=== PATIENT | female | born 1965 | race Caucasian/White ===

== ENCOUNTER 2020-07-28 06:19 | Observation (INO) ==
--- NOTE | 2020-07-07 16:33 | PAT Medication Instructions ---
Medication Instructions Date of Service July 07, 2020 Home Medications Lactobacillus acidophilus 1 billion cell capsule 1,000 mmu cells PO DAILY acetaminophen 325 mg capsule 325 mg PO QID PRN albuterol sulfate 90 mcg/actuation aerosol inhaler 1 inh INHALATION QID PRN amitriptyline 25 mg tablet 50 mg PO DAILY PRN bupropion HCl 100 mg tablet 100 mg PO QID calcium carbonate 500 mg calcium (1,250 mg) chewable tablet 500 mg PO BID citalopram 20 mg tablet 20 mg PO QAM fluticasone propionate 115 mcg-salmeterol 21 mcg/actuation HFA inhaler 2 puff INHALATION BID gabapentin 300 mg capsule 300 mg PO TID lamotrigine 25 mg tablet 50 mg PO BID levothyroxine 75 mcg capsule 75 mcg PO QAM loratadine 10 mg tablet 10 mg PO DAILY moxifloxacin 0.5 % eye drops 1 drp OPHTHALMIC (EYE) TID mv-mn-iron 22.5 mg-folic ac 400 mcg-vit K 500 [id number] chew tablet 1 tab PO QAM omega-3 fatty acids 1,000 mg capsule 1,000 mg PO BID omeprazole 20 mg capsule,delayed release 20 mg PO DAILY ondansetron 8 mg disintegrating tablet 8 mg PO Q12H oxybutynin chloride 5 mg tablet 5 mg PO TID promethazine 25 mg tablet 25 mg PO TID PRN trazodone 50 mg tablet 25 mg PO HS nystatin-emollient combo no.88 1 g TOPICAL DAILY PRN Continue as directed amitriptyline 25 mg tablet 50 mg PO DAILY PRN (if needed) STOP taking 2 weeks before surgery omega-3 fatty acids 1,000 mg capsule 1,000 mg PO BID STOP taking 24 hours before surgery nystatin-emollient combo no.88 1 g TOPICAL DAILY PRN DO NOT take the morning of surgery Lactobacillus acidophilus 1 billion cell capsule 1,000 mmu cells PO DAILY calcium carbonate 500 mg calcium (1,250 mg) chewable tablet 500 mg PO BID loratadine 10 mg tablet 10 mg PO DAILY mv-mn-iron 22.5 mg-folic ac 400 mcg-vit K 500 [id number] chew tablet 1 tab PO QAM oxybutynin chloride 5 mg tablet 5 mg PO TID Take morning of surgery With a small sip of water, OTHERWISE NOTHING TO EAT OR DRINK AFTER MIDNIGHT: acetaminophen 325 mg capsule 325 mg PO QID PRN (okay to take up to 4 hours prior to surgery if needed) albuterol sulfate 90 mcg/actuation aerosol inhaler 1 inh INHALATION QID PRN (use if needed; please bring with you to hospital day of surgery if possible) bupropion HCl 100 mg tablet 100 mg PO QID citalopram 20 mg tablet 20 mg PO QAM fluticasone propionate 115 mcg-salmeterol 21 mcg/actuation HFA inhaler 2 puff INHALATION BID gabapentin 300 mg capsule 300 mg PO TID lamotrigine 25 mg tablet 50 mg PO BID levothyroxine 75 mcg capsule 75 mcg PO QAM moxifloxacin 0.5 % eye drops 1 drp OPHTHALMIC (EYE) TID omeprazole 20 mg capsule,delayed release 20 mg PO DAILY ondansetron 8 mg disintegrating tablet 8 mg PO Q12H promethazine 25 mg tablet 25 mg PO TID PRN (if needed) Take evening before surgery acetaminophen 325 mg capsule 325 mg PO QID PRN (if needed) albuterol sulfate 90 mcg/actuation aerosol inhaler 1 inh INHALATION QID PRN (if needed) bupropion HCl 100 mg tablet 100 mg PO QID fluticasone propionate 115 mcg-salmeterol 21 mcg/actuation HFA inhaler 2 puff INHALATION BID gabapentin 300 mg capsule 300 mg PO TID lamotrigine 25 mg tablet 50 mg PO BID moxifloxacin 0.5 % eye drops 1 drp OPHTHALMIC (EYE) TID ondansetron 8 mg disintegrating tablet 8 mg PO Q12H oxybutynin chloride 5 mg tablet 5 mg PO TID promethazine 25 mg tablet 25 mg PO TID PRN (if needed) trazodone 50 mg tablet 25 mg PO HS Other Notes If you have any questions please call us at [phone] or [phone] or [phone] or [phone]
--- NOTE | 2020-07-11 10:08 | Anesthesiology Consultation ---
Date of Service July 11, 2020 Assessment & Plan (1) Encounter for pre-operative examination: Chart Review Chart Review: Acceptable Risk for Surgery (pending preop Covid testing results ) and Patient seen in Pre Admission Testing - Check test AM DOS Per PAT appt on 07/11/20, pt resides in [facility]. Travels to [facility] for medical appts. Uses PPE. No known Covid positive contacts or Covid related symptoms. No known Covid infection in the past 90 days. Preop Covid testing scheduled 07/24/20= will await results. Educated on importance of self quarantining, social distancing and wearing mask in public both for the patient and household contacts. Teaching & Discussion Pre-Anesthesia Teaching/Discussion Notes: Instructed NPO after midnight before surgery,except medications with 15 cc of water. Medication instructions provided according to the [facility] guidelines. History Surgery Operation Date: 07/28/20 14:25 Proposed Procedures p Left Total Knee Arthroplasty - Brennan Garrison DO Height/Weight Height: 5 ft 2.25 in Weight: 79.2 kg Allergies Allergy/AdvReac Type Severity Reaction Status Date / Time sulfamethoxazole Allergy Intermediate rash Verified 07/07/20 14:27 [From Bactrim] trimethoprim [From Bactrim] Allergy Intermediate rash Verified 07/07/20 14:27 Medications Home Medications Medication Instructions Recorded Confirmed Last Taken Lactobacillus acidophilus 1 1,000 mmu cells PO DAILY 07/04/20 07/07/20 Unknown billion cell capsule acetaminophen 325 mg capsule 325 mg PO QID PRN 07/04/20 07/07/20 Unknown albuterol sulfate 90 mcg/actuation 1 inh INHALATION QID PRN 07/04/20 07/07/20 Unknown aerosol inhaler amitriptyline 25 mg tablet 50 mg PO DAILY PRN 07/04/20 07/07/20 Unknown bupropion HCl 100 mg tablet 100 mg PO QID 07/04/20 07/07/20 Unknown calcium carbonate 500 mg calcium 500 mg PO BID 07/04/20 07/07/20 Unknown (1,250 mg) chewable tablet citalopram 20 mg tablet 20 mg PO QAM 07/04/20 07/07/20 Unknown fluticasone propionate 115 2 puff INHALATION BID 07/04/20 07/07/20 Unknown mcg-salmeterol 21 mcg/actuation HFA inhaler gabapentin 300 mg capsule 300 mg PO TID 07/04/20 07/07/20 Unknown lamotrigine 25 mg tablet 50 mg PO BID 07/04/20 07/07/20 Unknown levothyroxine 75 mcg capsule 75 mcg PO QAM 07/04/20 07/07/20 Unknown loratadine 10 mg tablet 10 mg PO DAILY 07/04/20 07/07/20 Unknown moxifloxacin 0.5 % eye drops 1 drp OPHTHALMIC (EYE) TID 07/04/20 07/07/20 Unknown mv-mn-iron 22.5 mg-folic ac 400 1 tab PO QAM 07/04/20 07/07/20 Unknown mcg-vit K 500 [id number] chew tablet omega-3 fatty acids 1,000 mg 1,000 mg PO BID 07/04/20 07/07/20 Unknown capsule omeprazole 20 mg capsule,delayed 20 mg PO DAILY 07/04/20 07/07/20 Unknown release ondansetron 8 mg disintegrating 8 mg PO Q12H 07/04/20 07/07/20 Unknown tablet oxybutynin chloride 5 mg tablet 5 mg PO TID 07/04/20 07/07/20 Unknown promethazine 25 mg tablet 25 mg PO TID PRN 07/04/20 07/07/20 Unknown trazodone 50 mg tablet 25 mg PO HS 07/04/20 07/07/20 Unknown nystatin-emollient combo no.88 1 g TOPICAL DAILY PRN 07/07/20 07/07/20 Unknown Past Medical History Medical History (Updated 07/11/20 @ 14:45 by Zara Gaitan PA-C) Anxiety Asthma Chronic obstructive pulmonary disease With emphysema Breathing stable and controlled Depression GERD (gastroesophageal reflux disease) Well controlled and stable History of COVID-19 03/29/2020 tested in [facility] , sinus infection symptoms, quarantine 14 days . Symptoms from Covid have resolved- pt feels well History of hypertension Hx of hyperlipidemia Hypothyroidism Osteoarthritis Sleep apnea No longer using CPAP Exercise / Class Metabolic Activity II 4-5 Yardwork/Stairs/Walk up hill (ONE FLIGHT OF STAIRS - NO CHEST PAIN OR SOB ) Past Surgical History Surgical History History of cardiac cath 2018 preop for bariatric surgery History of left cataract surgery History of right cataract surgery History of tonsillectomy and adenoidectomy Hx of appendectomy Hx of bariatric surgery 2018 [facility] Hx of breast reduction, elective 2018 [facility] Hx of section Past Anesthesia History No Hx of Anesthesia Complications and No Family Hx of Anesthesia Complications History of PONV No Hx of PONV and No Hx of Motion Sickness Social History Smoking Status: Current some day smoker tobacco type: cigarettes Smoking cigarettes per day: 1 pack/3 days Do You Dip or Chew Tobacco: No Hx Alcohol Use: No Hx Substance Use: No substance use type: does not use Review of Systems Patient denies chest pain, shortness of breath, dyspnea on exertion, cough, wheezing, palpitations. No hx of seizures, stroke, MO. No hx of blood clots or blood transfusions Physical Exam Vital Signs VITALS BP 112/73 P 68 TEMP 98.2 SP02 96% RESP 16 Constitutional no acute distress ENMT Mouth: no TMJ clicking Thyromental Distance: > or= 3.5 Finger Breadths (3.5) Mallampati Class: I All missing teeth Neck neck extension not limited Respiratory normal respiratory effort; no respiratory distress Auscultation: lungs clear to auscultation bilaterally; no wheezes Cardiovascular Rate/Rhythm: regular rate and regular rhythm Heart Sounds: no murmur Vessels: no carotid bruit Musculoskeletal Spine: + pain with cervical ROM (mild ) Extremities: extremities normal to inspection Psychiatric Orientation: alert Testing Laboratory Results 07/11/20 10:41 07/11/20 10:41 PT 10.3 Seconds (9.0-12.0) 07/11/20 10:41 INR 1.0 (0.9-1.1) 07/11/20 10:41 APTT 28.6 Seconds (21.0-31.0) 07/11/20 10:41 Blood Type O Negative 07/11/20 10:41 Antibody Screen NEGATIVE 07/11/20 10:41 Mild leukopenia noted on 05/2020 labs- will forward preop labs to PCP for review/I Electrocardiogram Date: 07/11/20 Findings: + NSR @ (63bpm) Chest X-Ray Date: 07/11/20 Findings: + NAD Echocardiogram Date: 03/19/17 EF: 61% LV Function: normal Other Findings: + LVH (Mild/concentric) Valvular Disease: + no significant valvular disease Septal motion is abnormal. LV wall motion is normal. Stress Test Date: 09/10/16 Type: nuclear Probable abnormal cardiac stress test suggesting apical ischemia and inferior infarct (poor quality study). Normal pharmacologic stress EKG for ischemia. Wall motion analysis, ejection fraction, 3 times daily ratio not been reported secondary to poor quality study. Cardiac Catheterization Date: 09/30/16 Coronary arteries had diffuse minor irregularities. Normal LV gram with EF 65%. No angiographic explanation for abnormal stress test.
--- NOTE | 2020-07-11 11:05 | XRay Report ---
XR chest Pre-admission PA/Lat CLINICAL HISTORY: Preoperative evaluation. COMPARISON STUDY: No previous studies for comparison. FINDINGS: Lung volumes are normal. Lungs are clear. There is no pneumothorax or pleural effusion. Car diac size is normal. Mediastinal contours are normal. There is no evidence for pulmonary edema. IMPRESSION: No acute cardiopulmonary findings. ACT 112: Negative or not required by law. Electronically signed by: Kwesi Barry M.D. 07/11/2020 11:04 AM
[2020-07-11 11:21] LABS: Basophils # (auto) 0.01 K/uL (0-0.2); Basophils % (auto) 0.3 %; Eosinophils # (auto) 0.06 K/uL (0-0.5); Hematocrit (blood only) 35.6 % (37-47); Hemoglobin 12.3 g/dL (12.0-16.0); Lymphocytes # (auto) 1.09 K/uL (1.2-3.4); Lymphocytes % (auto) 35.9 %; Mean Corpuscular Hemoglobin 31.5 pg (25-34); Mean Corpuscular Hgb Conc 34.6 g/dL (32-36); Mean Corpuscular Volume 91.3 fL (80-100); Mean Platelet Volume 10.6 fL (7.4-10.4); Monocytes # (auto) 0.23 K/uL (0.11-0.59); Monocytes % (auto) 7.6 %; Neutrophils # (auto) 1.65 K/uL (1.4-6.5); Neutrophils % (auto) 54.2 %; Platelet Count 140 K/uL (130-400); RDW Coefficient of Variation 13.3 % (11.5-14.5); White Blood Count 3.04 K/uL (4.8-10.8)
[2020-07-11 11:38] LABS: Partial Thromboplastin Ratio 1.1; Partial Thromboplastin Time 28.6 Seconds (21.0-31.0); Prothrombin Time 10.3 Seconds (9.0-12.0)
[2020-07-11 13:34] LABS: BUN Creatinine Ratio 29.1 (10-20); Calcium 9.3 mg/dl (8.5-10.1); Creatinine Clr Calc Pharmacy 161.6 ml/min; Est GFR (Non-African American) 119.1; Potassium 3.7 mmol/L (3.5-5.1)
--- NOTE | 2020-07-11 14:53 | Electrocardiogram Report ---
Test Reason : Blood Pressure : / mmHG Vent. Rate : 063 BPM Atrial Rate : 063 BPM P-R Int : 192 ms QRS Dur : 090 ms QT Int : 400 ms P-R-T Axes : 081 050 060 degrees QTc Int : 409 ms Normal sinus rhythm No previous ECGs available Confirmed by Giovanny Aguirre ([id number]) on 07/11/2020 2:52:42 PM Referred By: Brennan Garrison Confirmed By:Salomón Aguirre
[~2020-07-28 06:19] MED LIST: ACETAMINOPHEN 500 MG TAB PO SCH; FAMOTIDINE 20 MG TAB PO SCH; GABAPENTIN 900 MG DOSE PO SCH; LR 500ML BOLUS, THEN 15ML/HR IV SCH; LR 60ML/HR IV SCH; ROPIVACAINE 0.5% HCL/PF 150 MG, BUPIVACAINE 0.75% MPF 20 ML, EPINEPHrine 30MG/30ML (OR ... INSTIL SCH; TRANEXAMIC ACID 1,000 MG **IV Intra-op IV SCH; TRANEXAMIC ACID 1,000 MG **IV Pre-op IV SCH; ceFAZolin 1000MG 1,000 MG/7.5 ML SYR IV SCH; dexAMETHasone 4 MG TAB PO SCH
--- NOTE | 2020-07-28 06:22 | History & Physical Report ---
Date of Service July 28, 2020 Assessment & Plan (1) Osteoarthritis of left knee: We will proceed with a left total knee arthroplasty. Postoperatively she will be placed on aspirin for DVT prophylaxis and kept overnight in the hospital for postoperative medical management. She plans to use home health upon discharge. History of Present Illness Chief Complaint: Osteoarthritis left knee. Primary Care Provider: Uriel Stephen MD Gail is a pleasant 54-year-old female whose been dealing with chronic increasing bilateral knee pain. Her left is worse than her right. X-rays and clinical examination have been diagnostic for advanced osteoarthritis of the left knee. After failing conservative treatment, she has elected to proceed with a left total knee arthroplasty. She has recently lost about 250 pounds from gastric bypass surgery in 2018.. Allergies Allergy/AdvReac Type Severity Reaction Status Date / Time sulfamethoxazole Allergy Intermediate rash Verified 07/07/20 14:27 [From Bactrim] trimethoprim [From Bactrim] Allergy Intermediate rash Verified 07/07/20 14:27 Home Medications Medication Instructions Recorded Confirmed Type Lactobacillus acidophilus 1 1,000 mmu cells PO DAILY 07/04/20 07/07/20 History billion cell capsule acetaminophen 325 mg capsule 325 mg PO QID PRN 07/04/20 07/07/20 History albuterol sulfate 90 mcg/actuation 1 inh INHALATION QID PRN 07/04/20 07/07/20 History aerosol inhaler amitriptyline 25 mg tablet 50 mg PO DAILY PRN 07/04/20 07/07/20 History bupropion HCl 100 mg tablet 100 mg PO QID 07/04/20 07/07/20 History calcium carbonate 500 mg calcium 500 mg PO BID 07/04/20 07/07/20 History (1,250 mg) chewable tablet citalopram 20 mg tablet 20 mg PO QAM 07/04/20 07/07/20 History fluticasone propionate 115 2 puff INHALATION BID 07/04/20 07/07/20 History mcg-salmeterol 21 mcg/actuation HFA inhaler gabapentin 300 mg capsule 300 mg PO TID 07/04/20 07/07/20 History lamotrigine 25 mg tablet 50 mg PO BID 07/04/20 07/07/20 History levothyroxine 75 mcg capsule 75 mcg PO QAM 07/04/20 07/07/20 History loratadine 10 mg tablet 10 mg PO DAILY 07/04/20 07/07/20 History moxifloxacin 0.5 % eye drops 1 drp OPHTHALMIC (EYE) TID 07/04/20 07/07/20 History mv-mn-iron 22.5 mg-folic ac 400 1 tab PO QAM 07/04/20 07/07/20 History mcg-vit K 500 [id number] chew tablet omega-3 fatty acids 1,000 mg 1,000 mg PO BID 07/04/20 07/07/20 History capsule omeprazole 20 mg capsule,delayed 20 mg PO DAILY 07/04/20 07/07/20 History release ondansetron 8 mg disintegrating 8 mg PO Q12H 07/04/20 07/07/20 History tablet oxybutynin chloride 5 mg tablet 5 mg PO TID 07/04/20 07/07/20 History promethazine 25 mg tablet 25 mg PO TID PRN 07/04/20 07/07/20 History trazodone 50 mg tablet 25 mg PO HS 07/04/20 07/07/20 History nystatin-emollient combo no.88 1 g TOPICAL DAILY PRN 07/07/20 07/07/20 History Wheeled Walker #1 ea 07/13/20 Rx Past Med/Surg History Medical History Anxiety Asthma Chronic obstructive pulmonary disease With emphysema Breathing stable and controlled Depression GERD (gastroesophageal reflux disease) Well controlled and stable History of COVID-19 03/29/2020 tested in [facility] , sinus infection symptoms, quarantine 14 days . Symptoms from Covid have resolved- pt feels well History of hypertension Hx of hyperlipidemia Hypothyroidism Osteoarthritis Sleep apnea No longer using CPAP Surgical History History of cardiac cath 2018 preop for bariatric surgery History of left cataract surgery History of right cataract surgery History of tonsillectomy and adenoidectomy Hx of appendectomy Hx of bariatric surgery 2018 [facility] Hx of breast reduction, elective 2018 [facility] Hx of section Social History Smoking Status: Current some day smoker Cigarettes Per Day: 1 pack/3 days; Second Hand Exposure: No; Do You Dip or Chew Tobacco: No; Tobacco Cessation Education Requested by Patient: No Hx Alcohol Use: No Hx Substance Use: No Preferred Language: [place] Communication Ability: Effective Flight Teacher Required: No Beliefs That Will Affect Care: None Current Living Situation: Spouse Other Information That Helps Us Care for You: No Feels Safe at Home: Yes Safety Concerns: Feels Safe At This Time Review of Systems All systems reviewed & are unremarkable except as noted in HPI & below. Physical Exam On physical examination of the left knee, she does have a significant varus deformity. She has range of motion from 5 to 120 degrees. She is a little bit of valgus instability. She is tenderness palpation of the distal medial femoral condyle and over the medial joint line.. Constitutional WD/WN, vitals as above Eyes PERRL, conjunctivae normal, anicteric sclerae ENMT external ear and nose normal, oropharynx normal Neck trachea midline, no thyromegaly Respiratory normal respiratory effort Cardiovascular RRR, no murmur, no edema Gastrointestinal (Abdomen) normal bowel sounds, soft, nontender, no hepatosplenomegaly Psychiatric A+Ox3, euthymic affect Results & Data Results & Data Laboratory Results . Diagnostic Findings X-rays of the left knee do show advanced osteoarthritis with joint space narrowing, osteophyte formation, and [id number] articulation. PG Care Time/CCT Total # of Minutes Spent Total Time Spent with Patient: Total time spent is greater than 50% in coordination of care (as documented) at patient's floor/unit and/or counseling patient: Coding Level of Care Code None Diagnoses Osteoarthritis of left knee M17.12
[2020-07-28] MEDS ORDERED: BUPIVACAINE 0.5 % 5 MG/1 ML PF 10ML VIAL ONE (06:30)
[2020-07-28] MEDS ORDERED: fentaNYL citrate 100 MCG/2 ML VIAL IV PRN (07:09)
[2020-07-28] MEDS ORDERED: ATROPINE SULFATE 0.1 MG/ML 10ML SYR IV PRN (07:09)
[2020-07-28] MEDS ORDERED: ePHEDrine sulfate 50 MG/ML AMP IV PRN (07:09)
[2020-07-28] MEDS ORDERED: ONDANSETRON INJ 2 MG/ML 2 ML VIAL IV PRN ×2 (07:09→11:50)
[2020-07-28] MEDS ORDERED: PROPOFOL IV EMULSION 10 MG/ML 20 ML VIAL IV ONE ×4 (07:14→10:20)
[2020-07-28] MEDS ORDERED: MIDAZOLAM HCL 1 MG/ML 2ML VIAL ONE ×2 (07:14→08:59)
[2020-07-28] MEDS ORDERED: LIDOCAINE HCL 2% 2 ML VIAL/AMP(20MG/ML) INFIL ONE ×2 (07:14→09:57)
[2020-07-28] MEDS ORDERED: fentaNYL citrate 100 MCG/2 ML VIAL ONE (07:14)
[2020-07-28] MEDS ORDERED: ORTHO JOINT ANESTHETIC ONE (08:26)
--- NOTE | 2020-07-28 10:08 | Operative Report ---
PG Post Operative Report Pre & Post Diagnosis Operation Date: 07/28/20 08:50 Pre-Op Diagnosis: Left Knee Degenerative Joint Disease Post-Op Diagnosis: Left Knee Degenerative Joint Disease I identified the patient and participated in the time-out.: Yes Procedure Operation Date: 07/28/20 08:50 Actual Procedures p Left Total Knee Arthroplasty, Cemented(Left) - Brennan Garrison DO Surgeon Brennan Garrison DO Call Center Director Brennan Davila PAC Estimated Blood Loss 20 Findings Consistent with Post-Op Diagnosis Specimens Left femoral and tibial bone Complications none Disposition Disposition: Recovery Room Indications Gail is a pleasant 54-year-old female who has been ill with chronic increasing left knee pain. X-rays and clinical examination have been diagnostic for severe osteoarthritis of the left knee. After failing conservative treatment, she has elected proceed with a left total knee arthroplasty. Description of Procedure Implants used: I used a [employer] Persona total knee arthroplasty system with a size 8 CPS femur, D tibia, 32 patella, and a size 12 CPS polyethylene bearing. All components were cemented in place with Simplex HV cement. Gail arrived [facility] for the above procedure. She was seen in the preoperative holding area and the operative extremity was identified and signed. She was given a preoperative antibiotic, TXA, a spinal anesthetic and an adductor nerve block. She was taken back to the operating room and laid on the table in supine position. She was given basic sedation. The operative knee was then prepped and draped in sterile fashion. A timeout was done, and the patient and the operative extremity was properly identified. A midline incision was made directly over the patella. Dissection was taken down to the extensor mechanism. A subvastus arthrotomy was used. The medial retinaculum was released and the fat pad was mostly excised. The knee was flexed and the ACL, PCL, and meniscus were removed. A drill was sent down the center of the femoral canal followed by an intramedullary teresa. Off that teresa a distal femoral cutting block was placed. 9 mm was resected off the distal femur at 5 of valgus. A posterior referencing AP sizing guide was then placed on the distal femur. The femur measured to be a size 8. 2 drill holes were placed in 3 of external rotation. A 4-in-1 cutting block was then impacted into place. Anterior, posterior, and chamfer cuts were then made. The proximal tibia was then exposed. An external tibial alignment guide was placed. A tibial cut guide was then anchored in place and the proximal tibia was then resected. The posterior aspect of the knee was then opened up and any additional meniscus fragments and osteophytes were removed. The tibia measured to be a size D. The tibial plate was then placed in the appropriate rotation and the tibia was drilled and punched. Trial components were then placed. I used a size 12 CPS polyethylene insert. The knee was brought through a full range of motion and felt to be stable. The peg holes for the femoral component were then drilled. The patella was then everted and 9 mm was resected off the posterior aspect of the patella. The patella measured to be a size 32. 3 peg holes were then drilled. A trial patella was placed. The knee was once again brought through a full range of motion and felt to be stable. Trial components were then removed. The surrounding soft tissues were injected with 100 cc of an orthopedic pain control cocktail. All components were then cemented into place with Simplex HV cement. The final polyethylene insert was then snapped into place. Once cement was dry the tourniquet was deflated. Hemostasis was obtained. A dilute betadyne lavage was then done for 3 minutes. The joint was then irrigated with normal saline solution. The subvastus arthrotomy was then closed with #1 Vicryl suture. The skin was closed with 2-0 Vicryl, 3-0V lock suture, and paulina. A Silverlon and a soft compressive dressing were placed. She was then transferred to a hospital bed and taken to the postanesthesia care unit in stable condition. She tolerated the procedure well. Brennan Davila PA-C, was present for the entire procedure. He was critical for patient positioning, prepping, draping, retraction exposure, wound closure and application of sterile dressing. I attest to the content of the Intraoperative Record and any orders documented therein. Any exceptions are noted below.
--- NOTE | 2020-07-28 11:02 | XRay Report ---
XR knee LT 1 or 2V routine CLINICAL HISTORY: Postoperative evaluation COMPARISON: Knee radiographs July 04, 2020. FINDINGS: Alignment of the total left knee arthroplasty is anatomic. There is no periprosthetic frac ture or unexpected radiopaque foreign body. There are skin paulina. IMPRESSION: Expected findings following total left knee arthroplasty ACT 112: Negative or not required by law. Electronically signed by: Kwesi Barry M.D. 07/28/2020 11:01 AM
[2020-07-28] MEDS ORDERED: bisacodyL 10 MG SUPP PR PRN (11:50)
[2020-07-28] MEDS ORDERED: NALOXONE HCL 0.4 MG/1 ML VIAL/CARP IV PRN (11:50)
[2020-07-28] MEDS ORDERED: oxyCODONE HCL IR 5 MG TAB (IMMEDIATE RELEASE) PO PRN (11:50)
[2020-07-28] MEDS ORDERED: HYDROmorphone INJ 0.5 MG/0.5 ML SYR IV PRN (11:50)
[2020-07-28] MEDS ORDERED: AMITRIPTYLINE HCL 50 MG TAB PO PRN (11:50)
[2020-07-28] MEDS ORDERED: METOCLOPRAMIDE HCL INJ 5 MG/ML 2 ML VIAL IV PRN (11:50)
[2020-07-28] MEDS ORDERED: ALBUTEROL HFA 8 GM INHALER INH PRN (11:50)
[2020-07-28] MEDS ORDERED: MAGNESIUM HYDROXIDE SUSP 30 ML UDC PO PRN (11:50)
[2020-07-28] MEDS ORDERED: SODIUM CHLORIDE 0.9% 1000ML 1,000 ML IV SCH (11:50)
--- NOTE | 2020-07-28 12:11 | Anesthesiology Progress Note ---
Date of Service July 28, 2020 Anesthesia Post Procedure Vital Signs Vital Signs: Temp Pulse Pulse Resp BP Pulse Ox 07/28/20 11:30 52 L 14 109/62 94 07/28/20 11:15 54 L 14 112/65 94 07/28/20 11:05 97.7 F 57 L 17 119/72 94 07/28/20 10:55 61 16 119/71 94 07/28/20 10:45 58 L 16 118/72 95 07/28/20 10:35 59 L 16 119/76 97 07/28/20 10:28 97.2 F L 69 16 118/72 100 07/28/20 07:14 98.8 F 65 16 132/74 97 Transfer of Care Handoff Completed per policy Notes Mental Status: alert / awake / arousable and participated in evaluation Patient Amnestic to Procedure: Yes Nausea / Vomiting: adequately controlled Pain: adequately controlled Airway Patency, RR, SpO2: stable & adequate BP & HR: stable & adequate Hydration State: stable & adequate Neuraxial Anesthesia: was administered and sensory block is resolving Anesthetic Complications: no major complications apparent and Pt Satisfied with anesthetic care
[2020-07-28] MEDS: KETOROLAC 30 MG/ML VIAL IV SCH ×3 (12:58→23:10)
[2020-07-28] MEDS: OXYBUTYNIN CHLORIDE 5 MG TAB PO SCH ×2 (13:47→20:38)
[2020-07-28] MEDS: GABAPENTIN 300 MG CAP PO SCH ×2 (13:47→20:39)
[2020-07-28] MEDS: ACETAMINOPHEN 500 MG TAB PO SCH ×2 (13:47→23:09)
[2020-07-28] MEDS: buPROPion HCl 100 MG TABLET PO SCH ×3 (13:48→20:39)
[2020-07-28] MEDS ORDERED: MOXIFLOXACIN OPH SOLN PER DROP CHARGE OP SCH (14:00)
[2020-07-28] MEDS: ceFAZolin 2000MG 2,000 MG/15 ML SYR IV SCH ×2 (15:54→23:10)
[2020-07-28] MEDS: lamoTRIgine 25 MG TAB PO SCH (20:38)
[2020-07-28] MEDS: DOCUSATE SODIUM 100 MG CAP PO SCH (20:39)
[2020-07-28] MEDS: ASPIRIN 81 MG ECTAB PO SCH (20:39)
[2020-07-28] MEDS ORDERED: traZODone HCL 50 MG TAB PO SCH (21:00)
[2020-07-28] MEDS ORDERED: SENNA 8.6 MG TAB PO SCH (21:00)
[2020-07-29] MEDS: ACETAMINOPHEN 500 MG TAB PO SCH ×2 (05:29→13:37)
[2020-07-29] MEDS: KETOROLAC 30 MG/ML VIAL IV SCH ×2 (05:30→11:31)
[2020-07-29] MEDS ORDERED: LEVOTHYROXINE SODIUM 75 MCG TABLET PO SCH (06:30)
[2020-07-29] MEDS: DOCUSATE SODIUM 100 MG CAP PO SCH (07:19)
[2020-07-29] MEDS: ASPIRIN 81 MG ECTAB PO SCH (07:19)
[2020-07-29] MEDS: buPROPion HCl 100 MG TABLET PO SCH ×2 (07:19→12:22)
[2020-07-29] MEDS: OXYBUTYNIN CHLORIDE 5 MG TAB PO SCH ×2 (07:20→13:37)
[2020-07-29] MEDS: GABAPENTIN 300 MG CAP PO SCH ×2 (07:20→13:37)
[2020-07-29] MEDS: lamoTRIgine 25 MG TAB PO SCH (07:20)
--- NOTE | 2020-07-29 07:46 | Orthopedic Progress Note ---
Date of Service July 29, 2020 Assessment & Plan (1) Status post left knee replacement: Overall she is doing very well. She denies any much pain in the left knee. She will be seen by physical therapy today for ambulation and range of motion exercises. She is on aspirin for DVT prophylaxis. The dressing can be changed after physical therapy. She can be discharged home later today. She will follow-up with orthopedics in 2 weeks. Albert Reynolds was seen and examined at bedside this morning. Overall she is doing fairly well. She is not having much pain in the left knee. She has been up and ambulating to the bathroom. She has no complaints.. Review of Systems All systems reviewed & are unremarkable except as noted in HPI & below. Physical Exam On physical examination of the left knee, the dressing is clean and dry. Her leg is out full extension. She has active dorsiflexion plantarflexion of her left ankle.. Results & Data Results & Data Laboratory Results . Diagnostic Findings Postoperative x-rays of the left knee show the prosthesis to be in anatomic alignment without any evidence of fracture, dislocation, or loosening. PG Care Time/CCT Total # of Minutes Spent Total Time Spent with Patient: Total time spent is greater than 50% in coordination of care (as documented) at patient's floor/unit and/or counseling patient: Coding Level of Care Code 73610 Post Operative Follow-Up Diagnoses Status post left knee replacement Z96.652
--- NOTE | 2020-07-29 07:52 | Discharge Summary ---
Date of Service July 29, 2020 Admission HPI (Per Admitting) Gail is a pleasant 54-year-old female whose been dealing with chronic increasing bilateral knee pain. Her left is worse than her right. X-rays and clinical examination have been diagnostic for advanced osteoarthritis of the left knee. After failing conservative treatment, she has elected to proceed with a left total knee arthroplasty. She has recently lost about 250 pounds from gastric bypass surgery in 2018.. Admission Exam (Per Admitting) On physical examination of the left knee, she does have a significant varus deformity. She has range of motion from 5 to 120 degrees. She is a little bit of valgus instability. She is tenderness palpation of the distal medial femoral condyle and over the medial joint line.. Principal Diagnosis Same as "Discharge Diagnosis" noted below under Discharge Instructions. Discharge Exam On physical examination of the left knee, the dressing is clean and dry. Her leg is out full extension. She has active dorsiflexion plantarflexion of her left ankle.. Discharge Data Procedures Performed Operation Date: 07/28/20 08:50 Actual Procedures p Left Total Knee Arthroplasty, Cemented(Left) - Brennan Garrison DO Ordered Studies 07/28/20 05:00 US - OR guided needle placemen Routine Hospital Course (1) Status post left knee replacement: On July 28, 2020 Gail arrived at [facility] and underwent a left knee replaced without complication. She had a spinal anesthetic. Postoperatively she was started on aspirin for DVT prophylaxis and transferred to the general orthopedic floors. Her hospital course was uneventful. On postop day #1 her H&H was stable and her pain was well controlled. She was able to participate well with physical therapy doing ambulation and range of motion exercises. She was then discharged home. She can follow-up with orthopedics in 2 weeks. PG Care Time/CCT Total # of Minutes Spent Total Time Spent with Patient: Total time spent is greater than 50% in coordination of care (as documented) at patient's floor/unit and/or counseling patient: Discharge Plan Discharge Items Patient Disposition: Home - Home Health Services Reason For Visit: Left Knee Degenerative Joint Disease Discharge Diagnosis: Left knee replacement Activity: As commented below Non-emergency contact: Surgeon Call non-emergency contact if: your wound has increased redness and your wound has increased drainage Follow-up/Referrals: Uriel Stephen MD [Primary Care Provider] - Diet: Regular Addtl Attending Provider Instructions: Activity and Therapy Recommendations: * If you are using [facility] then therapy will be provided at your home until they feel you have accomplished all of your goals. * If you are using [facility] then Physical Therapy will be provided until they feel you are ready to start Outpatient Physical Therapy. * If you are not using home therapy then Outpatient Physical Therapy should start about 3-5 days from your day of surgery. Therapy will last about 6-10 weeks * It is important not to put a pillow under your knee when you are relaxing or sleeping. It is just as important to make sure you are getting your knee perfectly straight as it is to regain your knee bend. * You were shown a series of exercises in the hospital. Do these exercises three times each day including the exercises you were shown in physical therapy. * Get up and walk several times each day. For the first four weeks, try not to stand or walk for more than one hour at a time. If you do stand or walk for more than one hour, you will not hurt anything, but your leg will likely swell. * As you feel comfortable, you may change from the walker or crutches to a cane and then to independent walking. Medications: * Narcotic You will likely be sent home from the hospital with a prescription for the narcotic pain medication that worked best throughout your stay. * Aspirin Most patients will be required to take Aspirin 81mg twice a day for 6 weeks after surgery. This is obtained [id number] and a prescription is not necessary. * Other medications may be prescribed for specific circumstances. If you have any questions, please call the office at . * Resume previous home medications unless otherwise instructed TEDs/Elastic Stockings: The white elastic stockings help limit swelling and prevent blood clots from forming in your legs.~ The more you wear them, the more they work. Wear them for six weeks. Dressing Care: You may change the dressing after physical therapy on the first day. Then do daily dry dressing changes. If the incision is not draining then you may leave the paulina open to air. If there is a little bit of drainage or if the paulina are getting stuck on your clothing then cover the incision with a dry dressing. The paulina will be removed at your 2 week follow-up appointment. Showering: You may shower 5 days from the day of surgery. You may shower with the paulina exposed. Let soapy water run over the paulina and pat them dry. Do not scrub or soak the incision. Things To Watch For: * Drainage from the incision site that occurs more than one week after your surgery. * Increased redness at the incision site. * Fever above 102 degrees Fahrenheit. * Unusual chest pain or shortness of breath. * Call [facility] at with any of the above problems Follow-Up Visit: Follow-up with Dr. Garrison's PA (Brennan Davila) 2-3 weeks after your day of surgery. He will remove your paulina and answer any questions. If you have any additional questions or concerns, Dr Garrison is usually in the office at the same time and will be available An appointment was probably scheduled when you signed-up for surgery in the office. If you have any questions call Office Instructions: More detailed instructions as well as Frequently Asked Questions were provided in a folder by our office when you signed-up for surgery. Please review these instructions when you get home. If you have any further questions or concerns, please feel free to call the office at [phone] Pending Studies at Discharge: No Stand-Alone Forms: [facility] Medications and DC Order Prescriptions: New oxycodone 5 mg Tablet 5 mg PO Q4H PRN (Reason: pain) Qty: 30 RF: 0 aspirin 81 mg Tablet,Delayed Release (Dr/Ec) 81 mg PO BID 42 Days Qty: 84 RF: 0 Continued (DME) Wheeled Walker Misc See Rx Instructions .MEDSUPPLY Qty: 1 RF: 0 acetaminophen 325 mg capsule 325 mg PO QID PRN (Reason: Pain) RF: 0 amitriptyline 25 mg tablet 50 mg PO DAILY PRN (Reason: Itching) RF: 0 bupropion HCl 100 mg tablet 100 mg PO QID RF: 0 calcium carbonate [Calcium 500] 500 mg calcium (1,250 mg) tablet,chewable 500 mg PO BID RF: 0 citalopram 20 mg tablet 20 mg PO QAM RF: 0 DEKAs Bariatric 22.5 mg-400 mcg -500 mcg-10 mg tablet,chewable 1 tab PO QAM RF: 0 loratadine [Allergy Relief (loratadine)] 10 mg tablet 10 mg PO DAILY RF: 0 omega-3 fatty acids [Fish Oil Concentrate] 1,000 mg capsule 1,000 mg PO BID RF: 0 fluticasone propion-salmeterol 115-21 mcg/actuation HFA aerosol inhaler 2 puff inhalation BID RF: 0 gabapentin 300 mg capsule 300 mg PO TID RF: 0 Lactobacillus acidophilus 1 billion cell capsule 1,000 mmu cells PO DAILY RF: 0 lamotrigine 25 mg tablet 50 mg PO BID RF: 0 levothyroxine 75 mcg capsule 75 mcg PO QAM RF: 0 moxifloxacin 0.5 % drops 1 drp ophthalmic (eye) TID RF: 0 omeprazole 20 mg capsule,delayed release(DR/EC) 20 mg PO DAILY RF: 0 ondansetron 8 mg tablet,disintegrating 8 mg PO Q12H RF: 0 oxybutynin chloride 5 mg tablet 5 mg PO TID RF: 0 promethazine 25 mg tablet 25 mg PO TID PRN (Reason: n/v) RF: 0 albuterol sulfate [Proventil HFA] 90 mcg/actuation HFA aerosol inhaler 1 inh inhalation QID PRN (Reason: sob) RF: 0 trazodone 50 mg tablet 25 mg PO HS RF: 0 nystatin-emollient combo no.88 100,000 unit/gram Combo Pack,Gel And Powder 1 g TOPICAL DAILY PRN (Reason: prn) RF: 0 Discharge Orders: Discharge Order (Routine); Ordered 07/29/20 Ordered By: Brennan Garrison Admission Data Admit Date/Time: 07/28/20 10:32 Attending Provider: Brennan Garrison Admit Provider: Brennan Garrison Primary Care Provider: Uriel Stephen
[2020-07-29] MEDS ORDERED: dexAMETHasone 4 MG TAB PO SCH (08:00)
[2020-07-29] MEDS ORDERED: MULTIVITAMIN TAB PO SCH (09:00)
[2020-07-29] MEDS ORDERED: CITALOPRAM 20 MG TAB PO SCH (09:00)
== END 2020-07-29 14:02 | disposition home health service (06) ==
LOC: 3E 06:19 → ASU 06:19

== ENCOUNTER 2023-07-18 06:52 | Observation (INO) ==
--- NOTE | 2023-06-20 16:29 | PAT Medication Instructions ---
Medication Instructions Date of Service June 20, 2023 Home Medications Medication Instructions Recorded Vaughn Felix #1 ea 07/13/20 Lactobacillus acidophilus 1 billion cell capsule 1,000 mmu cells PO QAM acetaminophen 325 mg capsule 325 mg PO QID PRN albuterol sulfate 90 mcg/actuation aerosol inhaler (Proventil HFA) 1 inh inhalation QID PRN amitriptyline 25 mg tablet 75 mg PO HS bupropion HCl 100 mg tablet 100 mg PO QID calcium carbonate 500 mg calcium (1,250 mg) chewable tablet (Calcium 500) 500 mg PO BID citalopram 20 mg tablet 20 mg PO QAM fluticasone propionate 115 mcg-salmeterol 21 mcg/actuation HFA inhaler 2 puff inhalation BID lamotrigine 25 mg tablet 50 mg PO BID levothyroxine 75 mcg capsule 75 mcg PO QAM loratadine 10 mg tablet (Allergy Relief (loratadine)) 10 mg PO HS mv-mn-iron 22.5 mg-folic ac 400 mcg-vit K 500 [id number] chew tablet (DEKAs Bariatric) 1 tab PO QAM omega-3 fatty acids 1,000 mg capsule (Fish Oil Concentrate) 1,000 mg PO BID omeprazole 20 mg capsule,delayed release 20 mg PO DAILY PRN ondansetron 8 mg disintegrating tablet 8 mg PO Q12H PRN oxybutynin chloride 5 mg tablet 5 mg PO TID trazodone 50 mg tablet 25 mg PO HS montelukast 10 mg tablet 10 mg PO QAM Continue as directed omeprazole 20 mg capsule,delayed release 20 mg PO DAILY PRN(if needed) STOP taking 2 weeks before surgery (or as soon as possible if surgery is within 2 weeks) omega-3 fatty acids 1,000 mg capsule (Fish Oil Concentrate) 1,000 mg PO BID DO NOT take the morning of surgery Lactobacillus acidophilus 1 billion cell capsule 1,000 mmu cells PO QAM calcium carbonate 500 mg calcium (1,250 mg) chewable tablet (Calcium 500) 500 mg PO BID mv-mn-iron 22.5 mg-folic ac 400 mcg-vit K 500 [id number] chew tablet (DEKAs Bariatric) 1 tab PO QAM oxybutynin chloride 5 mg tablet 5 mg PO TID Take morning of surgery With a small sip of water, OTHERWISE NOTHING TO EAT OR DRINK AFTER MIDNIGHT: acetaminophen 325 mg capsule 325 mg PO QID PRN(if needed) albuterol sulfate 90 mcg/actuation aerosol inhaler (Proventil HFA) 1 inh inhalation QID PRN(use if needed; please bring with you to hospital day of surgery if possible) bupropion HCl 100 mg tablet 100 mg PO QID citalopram 20 mg tablet 20 mg PO QAM fluticasone propionate 115 mcg-salmeterol 21 mcg/actuation HFA inhaler 2 puff inhalation BID lamotrigine 25 mg tablet 50 mg PO BID levothyroxine 75 mcg capsule 75 mcg PO QAM ondansetron 8 mg disintegrating tablet 8 mg PO Q12H PRN(if needed) montelukast 10 mg tablet 10 mg PO QAM Take evening before surgery acetaminophen 325 mg capsule 325 mg PO QID PRN(if needed) albuterol sulfate 90 mcg/actuation aerosol inhaler (Proventil HFA) 1 inh inhalation QID PRN(if needed) amitriptyline 25 mg tablet 75 mg PO HS bupropion HCl 100 mg tablet 100 mg PO QID calcium carbonate 500 mg calcium (1,250 mg) chewable tablet (Calcium 500) 500 mg PO BID fluticasone propionate 115 mcg-salmeterol 21 mcg/actuation HFA inhaler 2 puff inhalation BID lamotrigine 25 mg tablet 50 mg PO BID loratadine 10 mg tablet (Allergy Relief (loratadine)) 10 mg PO HS ondansetron 8 mg disintegrating tablet 8 mg PO Q12H PRN(if needed) oxybutynin chloride 5 mg tablet 5 mg PO TID trazodone 50 mg tablet 25 mg PO HS Other Notes If you have any questions please call us at [phone] or [phone] or [phone] or [phone]
--- NOTE | 2023-06-25 13:49 | Anesthesiology Consultation ---
Date of Service June 25, 2023 Assessment & Plan (1) Encounter for pre-operative examination: Plan - Outpatient joint assessment: Patient is currently scheduled for inpatient pathway. If re-evaluated and patient/surgeon requests outpatient pathway, patient is not recommended candidate for outpatient joint program from anesthesia standpoint. Chart Review Chart Review: Acceptable Risk for Surgery and Patient seen in Pre Admission Testing Teaching & Discussion Pre-Anesthesia Teaching/Discussion Notes: Instructed NPO after midnight before surgery, except medications with 15 cc of water. Medication instructions provided according to the PAT guidelines. History Surgery Operation Date: 07/18/23 09:00 Proposed Procedures p Right Total Knee Arthroplasty - Brennan Garrison, Height/Weight Height: 5 ft 2.25 in Weight: 89.4 kg Allergies Allergy/AdvReac Type Severity Reaction Status Date / Time sulfamethoxazole Allergy Intermediate rash Verified 06/13/23 09:03 [From Bactrim] trimethoprim [From Bactrim] Allergy Intermediate rash Verified 06/13/23 09:03 nickel Allergy Mild swelling/redness Verified 06/13/23 09:03 with nickel earrings Medications Home Medications Medication Instructions Recorded Confirmed Last Taken Lactobacillus acidophilus 1 1,000 mmu cells PO QAM 07/04/20 06/13/23 Unknown billion cell capsule acetaminophen 325 mg capsule 325 mg PO QID PRN Pain 07/04/20 06/13/23 07/24/20 10:00 albuterol sulfate 90 mcg/actuation 1 inh inhalation QID PRN sob 07/04/20 06/13/23 07/27/20 07:00 aerosol inhaler (Proventil HFA) amitriptyline 25 mg tablet 75 mg PO HS 07/04/20 06/13/23 07/26/20 22:00 bupropion HCl 100 mg tablet 100 mg PO QID 07/04/20 06/13/23 07/27/20 07:00 calcium carbonate (Calcium 500) 500 mg PO BID 07/04/20 06/13/23 Unknown citalopram 20 mg tablet 20 mg PO QAM 07/04/20 06/13/23 07/27/20 07:00 fluticasone propionate 115 2 puff inhalation BID 07/04/20 06/13/23 07/27/20 07:00 mcg-salmeterol 21 mcg/actuation HFA inhaler lamotrigine 25 mg tablet 50 mg PO BID 07/04/20 06/13/23 07/27/20 07:00 levothyroxine 75 mcg capsule 75 mcg PO QAM 07/04/20 06/13/23 07/27/20 23:59 loratadine 10 mg tablet (Allergy 10 mg PO HS 07/04/20 06/13/23 07/27/20 07:00 Relief (loratadine)) mv-mn-iron 22.5 mg-folic ac 400 1 tab PO QAM 07/04/20 06/13/23 Unknown mcg-vit K 500 [id number] chew tablet (DEKAs Bariatric) omega-3 fatty acids 1,000 mg 1,000 mg PO BID 07/04/20 06/13/23 Unknown capsule (Fish Oil Concentrate) omeprazole 20 mg capsule,delayed 20 mg PO DAILY PRN Acid Reflux 07/04/20 06/13/23 07/14/20 07:00 release ondansetron 8 mg disintegrating 8 mg PO Q12H PRN Nausea 07/04/20 06/13/23 07/14/20 07:00 tablet oxybutynin chloride 5 mg tablet 5 mg PO TID 07/04/20 06/13/23 07/27/20 07:00 trazodone 50 mg tablet 25 mg PO HS 07/04/20 06/13/23 07/26/20 22:00 Wheeled Walker #1 ea 07/13/20 04/23/23 Unknown montelukast 10 mg tablet 10 mg PO QAM 06/13/23 06/13/23 Unknown Past Medical History Medical History Anxiety Asthma Chronic obstructive pulmonary disease controlled, stable per pt; last rescue inhaler use several yrs ago Depression GERD (gastroesophageal reflux disease) Well controlled and stable History of blood transfusion 2020 after knee replacement History of COVID-19 03/29/2020 tested in [facility]--resolved, no further issues History of hypertension controlled, stable per pt Hx of hyperlipidemia Hypothyroidism Osteoarthritis Sleep apnea No longer using CPAP Patient denies h/o stroke, seizures, heart attack, heart failure, DM, or blood clots/DVTs. Exercise / Class Metabolic Activity II 4-5 Yardwork/Stairs/Walk up hill (denies chest discomfort or shortness of breath with 1 FOS) Past Family History Family History Other No family history of adverse response to anesthesia Past Surgical History Surgical History History of cardiac cath 09/2016 preop for bariatric surgery @ [facility]--no stents History of colonoscopy History of left cataract surgery History of right cataract surgery History of tonsillectomy and adenoidectomy Hx of appendectomy Hx of bariatric surgery 2017 page Hx [facility], [facility] Hx of section x5 Status post left knee replacement (~07/2020) Status post panniculectomy 2021 Past Anesthesia History No Hx of Anesthesia Complications and No Family Hx of Anesthesia Complications History of PONV No Hx of PONV and No Hx of Motion Sickness Social History Smoking Status: Current every day smoker tobacco type: cigarettes Smoking cigarettes per day: 10 a day (advised on policy) Do You Dip or Chew Tobacco: No Hx Alcohol Use: No Hx Substance Use: No substance use type: does not use Review of Systems Patient denies chest pain, shortness of breath, dyspnea on exertion, fever, chills, cough, wheezing, or palpitations. Physical Exam Vital Signs Vitals BP 111/69 P 66 TEMP 98.1 SP02 96% on RA RESP 18 Physical Patient resting comfortably in chair in no acute distress, alert and oriented, responding appropriately throughout visit Full cervical extension range of motion without pain TMD 3.5 finger breadths Mallampati Score 3 Dentition: edentulous Lungs: normal respiratory effort. Good air movement, clear throughout to auscultation, no adventitious breath sounds Cardiac: regular rate and rhythm, no murmurs noted Carotid arteries: negative bruit bilat Lab Results Anesthesia Preop Results Results Anesthesia Widget: WBC 4.20 K/ul (4.8-10.8) L 06/25/23 Hgb 13.2 g/dl (12.0-16.0) 06/25/23 Hct 39.0 % (37.0-47.0) 06/25/23 Plt 159 K/uL (130-400) 06/25/23 Na 136 mmol/L (136-145) 06/25/23 K 4.2 mmol/L (3.5-5.1) 06/25/23 Cl 102 mmol/L (98-107) 06/25/23 CO2 30 mmol/L (21-32) 06/25/23 BUN 10 mg/dl (6-23) 06/25/23 Creat 0.51 mg/dl (0.6-1.2) L 06/25/23 Glucose Level 86 mg/dl (70-99(Fasting)) 06/25/23 PT 10.5 Seconds (9.0-12.0) 06/25/23 PTT 32 Seconds (21-31) H 06/25/23 INR 1.0 (0.9-1.1) 06/25/23 Blood Type O Negative 06/25/23 Antibody Screen NEGATIVE 06/25/23 Testing Electrocardiogram Date: 06/25/23 NSR, rate 66 bpm Chest X-Ray Date: 06/25/23 No acute chest disease. Stress Test Date: 12/03/22 Pharmacologic MPHR 58% Negative for ischemia EF 62% Normal wall motion Other Testing Brain MRI 02/04/23 1. No acute intracranial abnormality detected. 2. There are scattered foci of T2 hyperintensity in the cerebral white matter bilaterally, without restricted diffusion, a non-specific finding. This pattern most commonly reflects chronic small vessel ischemic change (if the patient has appropriate risk factors). Otherwise, inflammatory, embolic, vasospastic and traumatic processes are also in the differential diagnosis. Cerebral volume loss is also noted. Cardiac event monitor 09/22/22 1 Patient had a min HR of 49 bpm, max HR of 176 bpm, and avg HR of 74 bpm. Predominant underlying rhythm was Sinus Rhythm. First Degree AV Block was present. 24 nonsustained asymptomatic. Supraventricular Tachycardia runs occurred, the run with the fastest interval lasting 8 beats with a max rate of 176 bpm, the longest lasting 14 beats with an avg rate of 101 bpm. Some episodes of Supraventricular Tachycardia may be possible Atrial Tachycardia with variable block. Isolated SVEs were rare (<1.0%), SVE Couplets were rare (<1.0%), and SVE Triplets were rare (<1.0%). Isolated VEs were rare (<1.0%), VE Couplets were rare (<1.0%), and no VE Triplets were present. Ventricular Bigeminy was present. multiple reported events were associated with sinus rhythm and ectopic beats
[~2023-07-18 06:52] MED LIST changes: -ACETAMINOPHEN 500 MG TAB PO SCH; +BUPIVACAINE 0.5 % 5 MG/1 ML PF 10ML VIAL ONE; -FAMOTIDINE 20 MG TAB PO SCH; -GABAPENTIN 900 MG DOSE PO SCH; -LR 500ML BOLUS, THEN 15ML/HR IV SCH; -LR 60ML/HR IV SCH; +ROPIVACAINE 0.5% 5 MG/ML 30 ML VIAL ONE; -ROPIVACAINE 0.5% HCL/PF 150 MG, BUPIVACAINE 0.75% MPF 20 ML, EPINEPHrine 30MG/30ML (OR ... INSTIL SCH; -TRANEXAMIC ACID 1,000 MG **IV Intra-op IV SCH; -TRANEXAMIC ACID 1,000 MG **IV Pre-op IV SCH; -ceFAZolin 1000MG 1,000 MG/7.5 ML SYR IV SCH; -dexAMETHasone 4 MG TAB PO SCH
[2023-07-18] MEDS ORDERED: LIDOCAINE 2% 2 ML VIAL/AMP(20MG/ML) INFIL ONE (07:04)
[2023-07-18] MEDS ORDERED: PROPOFOL IV EMULSION 10 MG/ML 20 ML VIAL IV ONE ×4 (07:04→09:12)
[2023-07-18] MEDS ORDERED: DEXAMETHASONE SOD INJ 4 MG/ML VIAL ONE (07:04)
[2023-07-18] MEDS ORDERED: ONDANSETRON INJ 2 MG/ML 2 ML VIAL ONE (07:04)
[2023-07-18] MEDS ORDERED: fentaNYL citrate PF 100 MCG/2 ML VIAL ONE ×2 (07:05→09:21)
[2023-07-18] MEDS ORDERED: MIDAZOLAM HCL 1 MG/ML 2ML VIAL ONE (07:05)
[2023-07-18] MEDS ORDERED: ePHEDrine sulfate 50 MG/5 ML SYR ONE ×2 (07:46→09:12)
[2023-07-18 07:50] LABS: INR 0.9 (0.9-1.1); Partial Thromboplastin Ratio 1.1; Partial Thromboplastin Time 31 Seconds (21-31); Prothrombin Time 10.3 Seconds (9.0-12.0)
--- NOTE | 2023-07-18 08:05 | History & Physical Bridge Note ---
Date of Service July 18, 2023 History & Physical Bridge Note I have examined the patient, reviewed the History & Physical and in the interval since the performance of the History & Physical I have noted the following changes of clinical significance: no changes noted
[2023-07-18] MEDS: GABAPENTIN 600 MG DOSE PO SCH (08:15)
[2023-07-18] MEDS: dexAMETHasone**PF** 10 MG/ML VIAL IV SCH (08:16)
[2023-07-18] MEDS: FAMOTIDINE 20 MG TAB PO SCH (08:16)
[2023-07-18] MEDS: ACETAMINOPHEN 500 MG TAB PO SCH ×2 (08:16→13:20)
[2023-07-18] MEDS: LR 60ML/HR IV SCH (08:16)
[2023-07-18] MEDS: LR 500ML BOLUS, THEN 15ML/HR IV SCH (08:16)
[2023-07-18] MEDS ORDERED: ATROPINE SULFATE 0.1 MG/ML 10ML SYR IV PRN (08:22)
[2023-07-18] MEDS ORDERED: ePHEDrine sulfate 50 MG/ML AMP IV PRN (08:22)
[2023-07-18] MEDS ORDERED: ONDANSETRON INJ 2 MG/ML 2 ML VIAL IV PRN ×2 (08:22→11:56)
[2023-07-18] MEDS: TRANEXAMIC ACID 1,000 MG **IV Pre-op IV SCH (08:37)
[2023-07-18] MEDS: ceFAZolin 2000MG 2,000 MG/15 ML SYR IV SCH ×2 (09:01→16:46)
[2023-07-18] MEDS ORDERED: ROCURONIUM BROMIDE 10 MG/ML 5 ML VIAL IV ONE ×5 (09:12)
[2023-07-18] MEDS: ORTHO JOINT ANESTHETIC ONE (09:38)
[2023-07-18] MEDS: ROPIV 0.5% 246mg, Ketorolac 30mg, EPINEPHrine 0.5mg in NSS INFIL SCH (09:58)
[2023-07-18] MEDS: TRANEXAMIC ACID 1,000 MG **IV Intra-op IV SCH (10:10)
--- NOTE | 2023-07-18 10:10 | Operative Report ---
PG Post Operative Report Pre & Post Diagnosis Operation Date: 07/18/23 09:00 Pre-Op Diagnosis: Right Knee Degenerative Joint Disease Post-Op Diagnosis: Right Knee Degenerative Joint Disease I identified the patient and participated in the time-out.: Yes Procedure Operation Date: 07/18/23 09:00 Actual Procedures p Right Total Knee Arthroplasty(Right) - Brennan Garrison DO Surgeon Brennan Garrison DO [place] Brennan Davila PA-C Estimated Blood Loss 30 Findings Consistent with Post-Op Diagnosis Specimens Right femoral tibial bone Description of Procedure Implants used: I used a Rafiq Persona total knee arthroplasty system with a size 9 standard PS femur, D tibia, 31 oval patella, and a size 10 CPS polyethylene bearing. All components were cemented in place with Biomet cement. Gail arrived [facility] for the above procedure. She was seen in the preoperative holding area and the operative extremity was identified and signed. She was given a preoperative antibiotic, TXA, a spinal anesthetic and an adductor nerve block. She was taken back to the operating room and laid on the table in supine position. She was given basic sedation. The operative knee was then prepped and draped in sterile fashion. A timeout was done, and the patient and the operative extremity was properly identified. A midline incision was made directly over the patella. Dissection was taken down to the extensor mechanism. A medial parapatellar arthrotomy was used. The medial retinaculum was released and the fat pad was mostly excised. The knee was flexed and the ACL, PCL, and meniscus were removed. A drill was sent down the center of the femoral canal followed by an intramedullary teresa. Off that teresa a distal femoral cutting block was placed. 9 mm was resected off the distal femur at 5 of valgus. A posterior referencing AP sizing guide was then placed on the distal femur. The femur measured to be a size 9. 2 drill holes were placed in 3 of external rotation. A 4-in-1 cutting block was then impacted into place. Anterior, posterior, and chamfer cuts were then made. The proximal tibia was then exposed. An external tibial alignment guide was placed. A tibial cut guide was then anchored in place and the proximal tibia was then resected. The posterior aspect of the knee was then op ened up and any additional meniscus fragments and osteophytes were removed. The tibia measured to be a size D. The tibial plate was then placed in the appropriate rotation and the tibia was drilled and punched. Trial components were then placed. I used a size 10 CPS polyethylene insert. The knee was brought through a full range of motion and felt to be stable. The peg holes for the femoral component were then drilled. The patella was then everted and 9 mm was resected off the posterior aspect of the patella. The patella measured to be a size 31 oval. 3 peg holes were then drilled. A trial patella was placed. The knee was once again brought through a full range of motion and felt to be stable. Trial components were then removed. The surrounding soft tissues were injected with 100 cc of an orthopedic pain control cocktail. All components were then cemented into place with Biomet cement. The final polyethylene insert was then snapped into place. Once cement was dry the tourniquet was deflated. Hemostasis was obtained. A dilute betadyne lavage was then done for 3 minutes. The joint was then irrigated with normal saline solution. The medial parapatellar arthrotomy was then closed with #1 Vicryl suture. The skin was closed with 2-0 Vicryl, 3-0V lock suture, and paulina. A soft compressive dressing was placed. She was then transferred to a hospital bed and taken to the postanesthesia care unit in stable condition. She tolerated the procedure well. Brennan Davila PA-C, was present for the entire procedure. He was critical for patient positioning, prepping, draping, retraction exposure, wound closure and application of sterile dressing. I attest to the content of the Intraoperative Record and any orders documented therein. Any exceptions are noted below.
[2023-07-18] MEDS: fentaNYL citrate PF 100 MCG/2 ML VIAL IV PRN (10:40)
--- NOTE | 2023-07-18 11:01 | XRay Report ---
RIGHT KNEE 2 VIEWS History: Right total knee arthroplasty. Degenerative arthritis. Postop. FINDINGS: The patient is status post a right total knee arthroplasty. The hardware is intact. No frac ture or dislocation. Skin paulina are in place. IMPRESSION: Right total knee arthroplasty. No evidence for hardware complication. ACT 112: Negative or not required by law. Electronically signed by: Mikel Montero M.D. 07/18/2023 10:59 AM
[2023-07-18] MEDS: HYDROmorphone INJ 1 MG/ML SYRINGE IV STA (11:12)
--- NOTE | 2023-07-18 11:29 | Anesthesiology Progress Note ---
Date of Service July 18, 2023 Anesthesia Post Procedure Vital Signs Vital Signs: Temp Pulse Pulse Resp BP BP Pulse Ox 07/18/23 11:20 97.9 F 86 18 127/77 94 07/18/23 11:10 83 12 137/86 94 07/18/23 11:00 87 14 136/76 94 07/18/23 10:50 87 16 132/77 95 07/18/23 10:40 88 18 144/81 H 98 07/18/23 10:30 98.1 F 84 16 129/81 96 07/18/23 07:53 72 24 128/74 97 O2 Del Method O2 Flow Rate 07/18/23 11:20 Oxymask 2 07/18/23 11:10 Oxymask 2 07/18/23 11:00 Oxymask 2 07/18/23 10:50 Oxymask 2 07/18/23 10:40 Oxymask 3 07/18/23 10:30 Oxymask 6 07/18/23 07:53 Room Air Pain Intensity Right Knee: Pain Intensity: 4 Transfer of Care Handoff Completed per policy Notes Mental Status: alert / awake / arousable and participated in evaluation Patient Amnestic to Procedure: Yes Nausea / Vomiting: adequately controlled Pain: adequately controlled and improving with treatment Airway Patency, RR, SpO2: stable & adequate BP & HR: stable & adequate Hydration State: stable & adequate Anesthetic Complications: no major complications apparent and Pt Satisfied with anesthetic care
[2023-07-18] MEDS ORDERED: NALOXONE HCL 0.4 MG/1 ML VIAL/CARP IV PRN (11:56)
[2023-07-18] MEDS ORDERED: ONDANSETRON 8MG OD TAB PO PRN (11:56)
[2023-07-18] MEDS ORDERED: HYDROmorphone INJ 0.5 MG/0.5 ML SYR IV PRN (11:56)
[2023-07-18] MEDS ORDERED: ALBUTEROL HFA 8 GM INHALER INH PRN (11:56)
[2023-07-18] MEDS ORDERED: METOCLOPRAMIDE HCL INJ 5 MG/ML 2 ML VIAL IV PRN (11:56)
[2023-07-18] MEDS ORDERED: MAGNESIUM HYDROXIDE SUSP 30 ML UDC PO PRN (11:56)
[2023-07-18] MEDS ORDERED: bisacodyL 10 MG SUPP PR PRN (11:56)
[2023-07-18] MEDS ORDERED: PANTOprazole 40 MG TAB PO PRN (12:09)
[2023-07-18] MEDS: HYDROmorphone INJ 1 MG/ML SYRINGE ONE (12:18)
[2023-07-18] MEDS: KETOROLAC 30 MG/ML VIAL IV SCH (12:23)
[2023-07-18] MEDS: SODIUM CHLORIDE 0.9% 1,000 ML IV SCH (12:47)
[2023-07-18] MEDS: buPROPion HCl 100 MG TABLET PO SCH (12:47)
[2023-07-18] MEDS: oxyBUTYnin chloride 5 MG TAB PO SCH (13:20)
[2023-07-18] MEDS: SENNA 8.6 MG TAB PO SCH (19:54)
[2023-07-18] MEDS: AMITRIPTYLINE HCL 25 MG TAB PO SCH (19:54)
[2023-07-18] MEDS: DOCUSATE SODIUM 100 MG CAP PO SCH (19:55)
[2023-07-18] MEDS: traZODone HCL 50 MG TAB PO SCH (19:55)
[2023-07-18] MEDS: ASPIRIN 81 MG ECTAB PO SCH (19:55)
[2023-07-18] MEDS: lamoTRIgine 25 MG TAB PO SCH (19:55)
[2023-07-18] MEDS: oxyCODONE HCL IR 5 MG TAB (IMMEDIATE RELEASE) PO PRN (19:58)
[2023-07-18] MEDS ORDERED: Nursing to Pharmacy Communication SCH (22:30)
[2023-07-19] MEDS: LEVOTHYROXINE SODIUM 75 MCG TABLET PO SCH (05:45)
--- OUTSIDE RECORDS SUMMARY | 2023-07-19 06:32 | External Medical Summary | Summary of Care ---
Author Name Unknown Organization [facility] Address [address] [facility] [place] [address] Phone [phone] Care Team Providers Care Executive Administrative Asst Name Role Phone [facility] Primary Care Provider [phone]- [phone] Reason for Visit * Reason Comments eRx-Medication Refill Encounter Details Date Type Department Care Team (Late st Contact Info) Description 06/26/2023 [facility]ill [facility] [address] [facility] [place] [phone] [facility] CRNP [address] [place] [address] Perennial allergic rhinitis Allergies Active Allergy Reactions Criticality Noted Date Comments Sulfamethoxazole-Trimethoprim Itching 2015 Ragweed Itching,Cough 07/25/2014 documented as of this encounter (statuses as of 06/27/2023) Medications Medication Sig Dispensed Refills Start Date End Date Status lamoTRIgine (LAMICTAL) 25 MG TabletIndications:A djustment disorder with depressed mood Take 2 Tablets by mouth in the morning and 2 Tablets before bedtime. Per Brennon st 05/09. 0 6 Active acetaminophen (TYLENOL) 325 MG Tablet Take 2 Tabs by mouth every 6 hours as needed for Pain. 30 Tab 0 7 Active Lactobacillus Tablet Take 1 Tab by mouth 3 times a day. 21 Tab 0 7 Active Additional Information Patient taking differently:1 Tablet OralDaily(AM), Reported on 03/04/2022 buPROPion (WELLBUTRIN) 100 MG Tablet Take 1 Tab by mouth 3 times a day. Follow up with GI nutrition 90 Tab 3 8 Active Additional Information Patient taking differently:100 mg OralQID(AM/NOON/PM/HS), Follow up with GI nutrition, Reported on 03/11/2022 ondansetron ODT (ZOFRAN) [address] 1 Tab on tongue every 8 hours as needed for Nausea for up to 30 doses. dissolve on tongue. 30 Tab 1 8 Active Calcium Citrate-Vitamin D 500-400 MG-UNIT CHEW Take 2 Tabs by mouth 2 times a day. 0 8 Active fish oil concentrate (OMEGA-3) 1000 MG CAPS Take 1 Capsule by mouth in the morning and 1 Capsule before bedtime. 60 Cap 5 8 Active omeprazole (PRILOSEC) 20 MG CPDR Take 1 Cap by mouth daily as needed for Other (reflux). 30 Cap 6 9 Active traZODone (DESYREL) 50 MG Tablet Take 0.5 Tablets by mouth at bedtime. -DrSheth 0 9 Active amitriptyline (ELAVIL) 25 MG Tablet Take 3 Tablets by mouth at bedtime. For itching 90 Tab 5 9 Active Artificial Tears 0.1-0.3 % Ophthalmic Solution (Dextran 70-Hypromellose) Instill into eye. 0 Active Proventil HFA 108 (90 Base) MCG/ACT Inhalation Aerosol SolutionIndications :Tobacco use disorder,COPD, severity to be determined (HCC) 2 puffs 4 times daily as needed 18 g 5 1 Active Fluticasone-[place] rol 115-21 MCG/ACT Inhalation Aerosol (ADVAIR HFA) Inhale 2 Puffs by mouth 2 times a day. 12 g 5 1 Active Vitamin C 500 MG Oral Capsule Take by mouth daily. 0 Active LORazepam 1 MG Oral Tablet (Ativan) Take 1 Tablet by mouth daily as needed for Anxiety. 0 1 Active Vitamin D 50 MCG (2000 UT) Oral CapsuleIndications: Intestinal postoperative nonabsorption Take 1 capsule by mouth once daily 90 Cap 3 1 Active Zinc Sulfate 220 (50 Zn) MG Oral CapsuleIndications: Zinc deficiency Take by mouth 1 Capsule in the morning AND 1 Capsule before bedtime. 180 Capsule 1 2 Active Advanced Multi EA Oral Tablet Chewable Take by mouth 1 Tablet 2 times a day . 60 Tablet 11 2 Active Vitamin E 100 UNIT Oral Tablet Take 1 Tablet by mouth in the morning. 0 Active Citalopram Hydrobromide 40 MG Oral Tablet (CeleXA) 0 2 Active Vitamin A 3 MG ([address] UT) Oral Capsule (Aquasol-A)Indicati ons:Vitamin A deficiency Take 2 Capsules by mouth in the morning and 2 Capsules at noon and 2 Capsules before bedtime. 180 Capsule 3 3 Active Vitamin K2 100 MCG Oral CapsuleIndications: Intestinal postoperative nonabsorption,Vitam in K deficiency Take 300 mcg by mouth in the morning and 300 mcg before bedtime. 180 Capsule 3 3 Active Gabapentin 300 MG Oral Capsule (Neurontin)Indicati ons:Lumbar degenerative disc disease,Pain of foot, unspecified laterality TAKE 1 CAPSULE BY MOUTH THREE TIMES DAILY 90 Capsule 0 3 Active Montelukast Sodium 10 MG Oral Tablet (Singulair) Take 1 tablet by mouth once daily 90 Tablet 3 3 Active Levothyroxine Sodium 75 MCG Oral TabletIndications:A cquired hypothyroidism TAKE 1 TABLET BY MOUTH DAILY 1 HOUR BEFORE FOOD OR DRINK. DO NOT TAKE WITH OTHER MEDICATIONS 90 Tablet 1 3 Active oxyBUTYnin Chloride 5 MG Oral Tablet (Ditropan)Indicatio ns:Mixed incontinence urge and stress (male)(female),Cyst ocele, midline Take 1 Tablet by mouth in the morning and 1 Tablet at noon and 1 Tablet before bedtime. 90 Tablet 0 3 Active Saline Nasal [place] 0.65 % Nasal Solution ([place])Indications: Dysfunction of right eustachian tube Administer 1 [place] into nostril as needed for Congestion. 30 mL 12 3 Active oxyBUTYnin Chloride 5 MG Oral Tablet (Ditropan)Indicatio ns:Mixed incontinence urge and stress (male)(female),Cyst ocele, midline Take 1 Tablet by mouth in the morning and 1 Tablet at noon and 1 Tablet before bedtime. As needed for incontinence. 270 Tablet 3 3 Active Rexulti 1 MG Oral Tablet Take 1 Tablet by mouth every night at bedtime. 0 4 Active EQ All Day Allergy Relief 10 MG Oral Tablet (Loratadine)Indicat ions:Perennial allergic rhinitis TAKE 1 TABLET BY MOUTH IN THE MORNING 90 Tablet 1 4 Active Loratadine 10 MG Oral Tablet (Claritin)Indicatio ns:Perennial allergic rhinitis Take 1 Tablet by mouth in the morning. 90 Tablet 1 3 06/27/19 24 Discontinued documented as of this encounter (statuses as of 06/27/2023) Active Problems Problem Noted Date Diagnosed Date COPD, group B, by GOLD 2017 classification 11/04 Overview: Per COPD GOLD Classification Vitamin A deficiency 03/28/2021 Zinc deficiency 03/28/2021 Osteoarthritis of both knees 05/23/2020 Bilateral sciatica 05/23/2020 Dyslipidemia, goal LDL below 130 03/25/2019 S/P biliopancreatic diversion with duodenal swit ch 08/18/2018 Intestinal postoperative nonabsorption 8 Lumbar degenerative disc disease 12/17/2014 Overview: 12/06--fall--nl coccyx>Degenerative changes of the sacroiliac joints and pubic symphysis. Severe degenerative disc change at L5-S1 with grade 1- grade 2 anterior listhesis. Cystocele, midline 07/13/2014 Periodic limb movement disorder (PLMD) 4 Mild intermittent asthma without complication Overview: 12/05-nl pft -min sm aw inv. OA (osteoarthritis) of hip 10/21/2013 Overview[place] Acquired hypothyroidism 10/01/2013 Perennial allergic rhinitis 10/01/2013 Urge incontinence 10/01/2013 Recurrent major depressive disorder, in partial remission 10/01/2013 Overview: Celexa 40 mg x 2004,prior zoloft 10yrs.>>05/09-now fu Brennon--dec dose 20mg, loraz 1mg in am prn anx/panic attacks documented as of this encounter (statuses as of 06/27/2023) Resolved Problems Problem Noted Date Diagnosed Date Resolved Date Food insecurity 10/30/2020 03/08/2021 Overview: Per [facility] Protocol Post-operative state 08/05/2020 022 Acute blood loss anemia 08/05/202007/2021 Hematoma of left knee region 08/05/2020 03/28/2021 Left knee pain 08/05/2020 03/28/2021 Ambulatory dysfunction 08/05/202003/28 COPD, severity to be determined 05/23/2020 11/07/2022 Overview: Per COPD GOLD Classification Abnormality of gait 01/07/2018 03/28/19 Hypokalemia 08/31/2017 03/23/2018 S/P laparoscopic cholecystectomy 08/29/2017 03/28/2021 BMI 60.0-69.9, adult 08/13/2017 018 Body mass index (BMI) of 50. 0 to 59.9 in adult 05/06/2017 08/29/2017 Overview: Per Obesity protocol #1 Morbid obesity with BMI of 60.0-69.9, adult 06/06/2016 05/14/2017 Overview: Per Obesity protocol #1 Menorrhagia 05/02/2015 03/25/2019 Overview: 12/06-[employer] eval--pt to consider ablation>06/06-now fu Tomas-had US pelvis>rec med IUD S/P reduction mammoplasty 05/02/2015 Overview: Vishnu-S/P bilateral breast reduction with free nipple grafts performed on 05/30/15 History of colon polyps 05/02/201507/2021 Overview: 06/06--screen csope--xle polyps--C,SC,R; 1 20mm AC--serrated /HPP --rpt 1 yr.++ Obstructive sleep apnea of adult 02/10/2014 09/23/2019 Overview: 02/0508-KfA-wwcmgn Script cpap 03/26/14 Sleep Study: Cpap 11cm H2O w/heated humidity [employer]age Quattro full face mask 02/10/2014-fu>> 12/16/13-eval>>01/27/14 Sleep Study: Mild MIHIR, desat 82%, Frequent plm, recommend cpap titration study Vitamin D deficiency 11/02/2013 018 H/O fracture of rib 10/12/2013 03/28/19 Overview: 10/04--seen on 1st xr__rib xr>Healing 8th rib fracture with associated callus formation HTN, goal below 140/90 10/01/201309/22 Overview: ekg 05/09--pre op--nsr ,Sinus arrythmia;(sm q L2 only, sim ekg 10/05) NEISHA (iron deficiency anemia) 10/01/2013 05/12/2014 Overview: H/o heavy periods --Hb 6 in 2012--st po iron per pt>>.11/04--dc fe,b12>>215-st Hb Quit smoking within past year 10/01/2013 03/28/2021 Overview: 06/06-quit in feb before br reduction sg 10/04--1ppd x 30 yrs, quit on her own 1yr in past,no meds/patch--willing to quit --refer state prog OA (osteoarthritis) of knee 10/01/2013 07/17/2020 Overview: dee St inj--Dr Lozada-11/04/13; fu 01/10/14.>>Rx walker given Obesity, morbid, BMI 50 or higher 10/01/2013 12/26/2016 Overview: Per Obesity protocol #1 Encounter for screening mamm ogram for breast cancer 10/01/2013 09/21/2018 Overview: Neg [place] --?06/04>>>fb pocket setter lockstitch neg 12/06; Papanicolaou smear 10/01/2013 7 Overview: ?06/04--in [place] >>fb DrWaters--neg 11/05; documented as of this encounter (statuses as of 06/27/2023) Immunizations Name Administration Dates Next Due COVID-19 mRNA, LNP-s, No Pre serve, 2-Dose Series (Pfizer) 03/10/2021,08/12/2020,07/15/2020 Pneumococcal Conjugate Vacci ne, 20-valent ([id number]) 11/01/2021 Pneumococcal Polysaccharide PPV23 (Pneumovax) 10/01/2013 Seasonal Influenza, PF, 6 M & above, IM , (FluLaval or Fluzone) 11/27/2022,03/01/2022,12/27/2020,12/20,01/01/2019,01/12/2018,12/25/2016 Seasonal Influenza, Quadriva lent, No Preserve, IM 12/26/2015 Seasonal Influenza, Split, I IV3, With Preserve, Inj 12/12/2014,12/14/2013 TDAP (age 10 and older)(Boostrix) 10/14/2015,01/2014 documented as of this encounter Social History Tobacco Use Types Packs/Day Years Used Date Smoking Tobacco: Some Days Cigarettes 0.3 30 Started: 12/21/1990; Last attempted to quit: 12/21/2020 Smokeless Tobacco: Never Alcohol Use Standard Drinks/Week Comments No 0 (1 standard drink = 0.6 oz pur e alcohol) PHQ-2 Answer Date Recorded PHQ Adult Total Score 0 10/08/2022 Hunger Vital Sign Answer Date Recorded Within the past 12 months, y ou worried that your food would run out before you got the money to buy more. Never true 10/09/19 23 Within the past 12 months, t he food you bought just didn't last and you didn't have money to get more. Never true 10/08/2022 Sex and Gender Information Value Date Recorded Sex Assigned at Female 01/18/2019 8:15 AM EDT Gender Identity Female 01/18/2019 8:15 AM EDT Sexual Orientation Not on file Job Start Date Occupation Industry Not on file Not on file Not on file documented as of this encounter Functional Status Functional Status Response Date of Assess ment Are you deaf or do you have serious difficulty h earing? No 08/05/2020 Are you blind or do you have serious difficulty seeing, even when wearing glasses? No 08/05/2020 Do you have serious difficul ty walking or climbing stairs? (5 years old or older) Yes 08/05/2020 Do you have difficulty dress ing or bathing? (5 years old or older) Yes 08/05/2020 Because of a physical, menta l, or emotional condition, do you have difficulty doing errands alone such as visiting a doctor s office or shopping? (15 years old or older) Yes 08/06/19 Cognitive Status Response Date of Assessm ent Because of a physical, menta l, or emotional condition, do you have serious difficulty concentrating, remembering, or making decisions? (5 years old or older) No 08/05/2020 documented as of this encounter Miscellaneous Notes * Telephone Encounter - Davina Farr RPh - 06/27/2023 7:38 AM EDTSigned Prescriptions: Disp Refills EQ All Day Allergy Relief 10 MG Oral Table*90 Tab*1 Sig: TAKE 1 TABLET BY MOUTH IN THE MORNINGAuthorizing Provider: [facility] User: DAVINA FARR documented in this encounter Plan of Treatment Upcoming Encounters Date Type Department Care Team (Late st Contact Info) Description 07/15/2023 8:40 AM EDT Office Visit Podiatry, [address] [place] [address] Janneth Lemons DPM [address] [place] [address] 07/28/2023 2:45 PM EDT Office Visit Ophthalmology, [place] [address] [facility] [place] [address] Phong Doty MD [address] [place] [address] 08/07/2023 11:00 AM EDT Office Visit Family Practice, [place] [address] [facility] [place] [phone] [facility] CRNP [address] [place] [address] Scheduled Procedures Name Priority Associated Diagnoses Date/Ti me COLONOSCOPY FLEXIBLE PROXIMAL DIAGNOSTIC Recall History of colon polyps Health Maintenance Due Date Last Done Comments Hepatitis C Screening 10/21/1983 Hepatitis B (1 of 3 - 19+ 3-dose series) 1984 HPV/Co-Test 10/21/1995 Cologuard 2010 Fecal Occult Blood Test 2010 Sigmoidoscopy 2010 DISCUSS TOBACCO CESSATION (REFER TO SMARTSET #3291) 05/12/2015 05/12/2014 (Discussed) Zoster Vaccines (1 of 2) 10/21/2015 COVID-19 Vaccine ( season) 2022 03/10/2021, 08/12/2020, 07/15/2020 TSH 09/07/2023 09/06/2022, 0703/2021, 08/09/2020, Additional history exists Depression Screening 10/09/2023 10/08/2022 O2 ASSESSMENT COMPLETED IN PAST YEAR FOR COPD 02/04/2024 02/03/2023 Mammogram 03/10/2024 03/10/2023, 10/22, 10/30/2020, Additional history exists Cervical Cancer Screening 06/05/2024 Pap Smear 06/05/2024 06/05/2021, 07/23, 10/28/2014 Lipid Panel 08/09/2025 08/09/2020, 06/22, 08/19/2018, Additional history exists Diabetes Screening 09/06/2025 09/06/2022, 1 05/06/2021, 07/12/2021, Additional history exists DTaP,Tdap,and Td Vaccines (3 - Td or Tdap) 10/13/2025 10/14/2015, 10/01/2013 Colonoscopy 08/30/2031 08/29/2021, 10/2021, 12/14/2019, Additional history exists Colorectal Cancer Screening 08/30/2031 COLONOSCOPY-EVERY 3 YRS AGES 18-100 Discontinued 08/29/2021, 08/29/2021, 12/14/2019, Additional history exists Pneumococcal Vaccine: Pediatrics (0 to 5 Years) and At-Risk Patients (6 to 64 Years) Completed 11/01/2021, 10/01/2013 Alpha-1 Antitrypsin Completed 10/10/2022 Influenza Vaccine (FLU shot) Completed 11/27/2022, 03/01/2022, 12/27/2020, Additional history exists GARDASIL-HPV IMMUNIZATION SERIES Aged Out No longer eligible based on patient's age to complete this topic MENINGOCOCCAL (MENACTRA/MENVEO) Aged Out No longer eligible based on patient's age to complete this topic documented as of this encounter Medical Devices Implanted Type Area Software Controls Engineer Device Identifier Shelf Expiration Date Model / Serial / Lot Lens 18.5 Sn60wf - [id number] - [id number] Implanted:Qty: 1 on 10/22/2019 by Phong Doty MD at OR [facility] JAHAIRA : SURGICAL 05/22/2023 SN60WF.18 5 / [id number] / Micro[employer] Sureclip Repositionable Clip Implanted:Qty: 1 on 12/14/2019 by Berna Cano DO at [facility]COPY [facility] 11/01/2021 [facility]-F-26 -235-C-[id number] / / [id number] Description:2nd clip lot#[id number] exp 11-01-2021 Lens 19.0 Sn60wf - [id number] - [id number] Implanted:Qty: 1 on 07/07/2020 by Phong Doty MD at OR [facility] Left: Eye JAHAIRA : SURGICAL 10/27/2024 SN60WF.19 0 / [id number] / Patch Hernia Ventralex [facility] - [id number] Implanted:Qty: 1 on 07/12/2021 by Stone Mata MD [place] [facility] [place]/A: Abdomen CR BARD : DAVOL [id number] 11/18/2021 [id number] / / [id number] Description:Umbilical hernia repair documented as of this encounter Visit Diagnoses Diagnosis Perennial allergic rhinitis Allergic rhinitis, cause unspecified documented in this encounter Advance Directives Latest Code Status on File Code Status Date Activated Date Inactivated Comments Full Code 07/12/2021 12:57 PM 07/12/2021 7:23 PM This order reflects the patients wishes and were consensually agreed upon. Question Answer Comments Discussion of Advance Directives occurred with: Not Discussed Code Status History Code Status Date Activated Date Inactivated Comments Full Code 10/10/2020 7:56 AM 10/10/2020 2:06 PM This order reflects the patients wishes and were consensually agreed upon. Question Answer Comments Discussion of Advance Directives occurred with: Not Discussed Does the patient have a Living Will? No Does the patient have Health Care Power of Agility Instructor? No Full Code 08/05/2020 9:14 AM 08/08/2020 9:27 PM This order reflects the patients wishes and were consensually agreed upon. Question Answer Comments Discussion of Advance Directives occurred with: Not Discussed Full Code 08/29/2017 1:17 PM 09/01/2017 9:59 PM This o rder reflects the patients wishes and were consensually agreed upon. Full Code 08/29/2017 6:12 AM 08/29/2017 1:17 PM Question Answer Comments Discussion of Advance Directives occurred with: Not Discussed Care Teams Executive Administrative Asst Relationship Specialty Start Date End Date [facility] CRNP [address] [place] [address] PCP - General Nurse Practitioner 05/07/22 documented as of this encounter
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
--- OUTSIDE RECORDS SUMMARY | 2023-07-19 06:32 | External Medical Summary | Summary of Care ---
Author Name Unknown Organization [facility] Address [address] [facility] [place] [address] Phone [phone] Care Team Providers Care Custom Garment Designer Name Role Phone Sánchez House Primary Care Provider +1- [phone] Reason for Visit * Reason Comments eRx-Medication Refill Encounter Details Date Type Department Care Team (Late st Contact Info) Description 07/12/2023 Refill [facility] [address] [facility] [facility] [address] Sánchez House CRNP [address] [place] [address] Acquired hypothyroidism Allergies Active Allergy Reactions Criticality Noted Date Comments Sulfamethoxazole-Trimethoprim Itching 2015 Ragweed Itching,Cough 07/25/2014 documented as of this encounter (statuses as of 07/13/2023) Medications Medication Sig Dispensed Refills Start Date [...] 0 2 Active Vitamin A 3 MG (65298 UT) Oral Capsule (Aquasol-A)Indicati ons:Vitamin A deficiency [...] once daily 90 Tablet 3 3 Active oxyBUTYnin Chloride 5 MG Oral Tablet (Ditropan)Indicatio ns:Mixed incontinence urge and stress (male)(female),Cyst ocele, midline Take 1 Tablet by mouth in the morning and 1 Tablet at noon and 1 Tablet before bedtime. 90 Tablet 0 3 Active Saline Nasal [place] 0.65 % Nasal Solution ([place])Indications: Dysfunction of right eustachian tube Administer 1 [place] into nostril as needed for Congestion. 30 [...] THE MORNING 90 Tablet 1 4 Active Levothyroxine Sodium 75 MCG Oral TabletIndications:A cquired hypothyroidism TAKE 1 TABLET BY MOUTH ONCE DAILY 1 HOUR BEFORE FOOD OR DRINK DO NOT TAKE WITH OTHER MEDS 90 Tablet 1 4 Active Levothyroxine Sodium 75 MCG Oral TabletIndications:A cquired hypothyroidism TAKE 1 TABLET BY MOUTH DAILY 1 HOUR BEFORE FOOD OR DRINK. DO NOT TAKE WITH OTHER MEDICATIONS 90 Tablet 1 3 07/13/19 24 Discontinued documented as of this encounter (statuses as of 07/13/2023) Active Problems Problem Noted Date Diagnosed Date [...] as of this encounter (statuses as of 07/13/2023) Resolved Problems Problem Noted Date Diagnosed Date [...] Obesity protocol #1 Menorrhagia 05/02/2015 03/25/2019 Overview: 12/06-CONSTRUCTION CODE ADMINISTRATOR eval--pt to consider ablation>06/06-now fu Tomas-had US pelvis>rec med IUD S/P reduction mammoplasty 05/02/2015 Overview: Vishnu-S/P bilateral breast reduction with free nipple grafts performed on 05/30/15 History of colon polyps 05/02/201507/2021 Overview: 06/06--screen csope--xle polyps--C,SC,R; 1 20mm AC--serrated /HPP --rpt 1 yr.++ Obstructive sleep apnea of adult 02/10/2014 09/23/2019 Overview: 02/0505-AkT-vhzwwa Script cpap 03/26/14 Sleep Study: Cpap 11cm [...] --Hb 6 in 2012--st po iron per pt>>.8--dc fe,b12>>2/15-st Hb Quit smoking within past year 10/01/2013 [...] 10/01/2013 09/21/2018 [place]: [place] --?06/04>>>fb public relations neg 12/06; Papanicolaou smear 10/01/2013 7 Overview: ?06/04--[place] >>fb DrWaters--neg 11/05; documented as of this encounter (statuses as of 07/13/2023) Immunizations Name Administration Dates Next Due COVID-19 mRNA, LNP-s, No Pre serve, 2-Dose Series (Pfizer) 03/10/2021,08/12/2020,07/15/2020 Pneumococcal Conjugate Vacci ne, 20-valent ([id number]) 11/01/2021 Pneumococcal Polysaccharide PPV23 (Pneumovax) 10/01/2013 Seasonal [...] encounter Miscellaneous Notes * Telephone Encounter - Kristen Balbuena RPh - 07/13/2023 6:30 PM EDTSigned Prescriptions: Disp Refills Levothyroxine Sodium 75 MCG Oral Tablet 90 Tab*1 Sig: TAKE 1 TABLET BY MOUTH ONCE DAILY 1 HOUR BEFORE FOOD OR DRINK DO NOT TAKE WITH OTHER MEDSAuthorizing Provider:SÁNCHEZ HOUSE User: KRISTEN BALBUENA documented in this encounter Plan of Treatment Upcoming Encounters Date Type Department Care Team (Late st Contact Info) Description 07/15/2023 8:40 AM EDT Office Visit [facility], [facility] [address] [place] [address] Janneth Lemons DPM [address] [facility] [address] 07/28/2023 2:45 PM EDT Office Visit [facility], [place] [address] [facility] [address] Phong Doty MD [address] [facility] [place] [address] 08/07/2023 11:00 AM EDT [facility] Visit [facility] [place] [address] [facility] [id number] Sánchez House CRNP [address] [facility] [place] [address] Scheduled Procedures Name Priority Associated Diagnoses Date/Ti [...] this encounter Medical Devices Implanted Type Area Netting Weaver Device Identifier Shelf Expiration Date Model / Serial / Lot Lens 18.5 Sn60wf - [id number] - [id number] Implanted:Qty: 1 on 10/22/2019 by Phong Doty MD at OR [facility] JAHAIRA : SURGICAL 05/22/2023 SN60WF.18 5 / [id number] / Microtech Sureclip Repositionable Clip Implanted:Qty: 1 on 12/14/2019 by Berna Cano DO at ENDOSCOPY [facility] 11/01/2021 [facility]-F-26 -235-C-R / / [id number] 2 Description:2nd clip lot#[id number] exp 11-01-2021 Lens 19.0 Sn60wf - [id number] - [id number] Implanted:Qty: 1 on 07/07/2020 by Phong Doty MD at OR [facility] [place] Left: Eye JAHAIRA : SURGICAL 10/27/2024 SN60WF.19 0 / [id number] / Patch Hernia Ventralex [facility] - [id number] Implanted:Qty: 1 on 07/12/2021 by Stone Mata MD [place] [facility] [place]/A: Abdomen CR BARD : DAVOL [id number] 11/18/2021 [id number] / / [id number] Description:Umbilical hernia repair documented as of this encounter Visit Diagnoses Diagnosis Acquired hypothyroidism Unspecified hypothyroidism documented in this encounter Advance Directives Latest [...] the patient have Health Care Power of Property Management Accountant? No Full Code 08/05/2020 9:14 AM 08/08/2020 [...] Directives occurred with: Not Discussed Care Teams Custom Garment Designer Relationship Specialty Start Date End Date Sánchez House CRNP [address] [place] [address] PCP - General Nurse Practitioner 05/07/22 documented as of this encounter
--- NOTE | 2023-07-19 06:46 | Orthopedic Progress Note ---
Date of Service July 19, 2023 Assessment & Plan (1) Status post right knee replacement: Overall she is doing very well. She is not having much pain in the right knee. She will be seen by physical therapy today for ambulation and range of motion exercises. She is on aspirin for DVT prophylaxis. The nursing staff can change her dressing after physical therapy. She can be discharged home later today. She will follow-up orthopedics in 2 weeks. Albert Reynolds was seen and examined at bedside this morning. Overall she is doing very well. She is not having much pain in the right knee. She has been up and ambulating to the bathroom. She has no complaints. Review of Systems All systems reviewed & are unremarkable except as noted in HPI & below. Physical Exam On physical examination of the right knee, the dressing is clean and dry. Her leg is out full extension. She has active dorsiflexion plantarflexion of her right ankle.. Results & Data Results & Data Laboratory Results . Diagnostic Findings Postoperative x-rays of the right knee show the prosthesis to be in anatomic alignment without any evidence of fracture, his cage, or loosening.. PG Care Time/CCT Total # of Minutes Spent Total Time Spent with Patient: Total time spent is greater than 50% in coordination of care (as documented) at patient's floor/unit and/or counseling patient: Coding Level of Care Code 83060 Post Operative Follow-Up Diagnoses Status post right knee replacement Z96.651
--- NOTE | 2023-07-19 06:46 | Discharge Summary ---
Date of Service July 19, 2023 Principal Diagnosis Same as "Discharge Diagnosis" noted below under Discharge Instructions. Discharge Exam On physical examination of the right knee, the dressing is clean and dry. Her leg is out full extension. She has active dorsiflexion plantarflexion of her right ankle.. Discharge Data Procedures Performed Operation Date: 07/18/23 09:00 Actual Procedures p Right Total Knee Arthroplasty(Right) - Brennan Garrison DO Ordered Studies 07/18/23 05:00 US - OR guided needle placemen Routine Hospital Course (1) Status post right knee replacement: On July 18, 2023 Gail arrived at [facility] and underwent a right knee replacement without complication. She had a general anesthetic. Postoperatively she was started on aspirin for DVT prophylaxis and transferred to the general orthopedic floors. Her hospital course was uneventful. On postop day #1, her vital signs were stable and her pain was well-controlled. She was able to participate well with physical therapy doing ambulation and range of motion exercises. She was then discharged home. She will follow-up with orthopedics in 2 weeks.. PG Care Time/CCT Total # of Minutes Spent Total Time Spent with Patient: Total time spent is greater than 50% in coordination of care (as documented) at patient's floor/unit and/or counseling patient: Discharge Plan Discharge Items Patient Disposition: Home - Self-Care Reason For Visit: Right Knee Degenerative Joint Disease Discharge Diagnosis: Right knee replacement Activity: Per Instructions section Non-emergency contact: Surgeon Call non-emergency contact if: your wound has increased redness and your wound has increased drainage Follow-up/Referrals: Sugey House CRNP [Primary Care Provider] - Diet: Regular Addtl Attending Provider Instructions: Activity and Therapy Recommendations: * If you are using [facility] then therapy will be provided at your home until they feel you have accomplished all of your goals. * If you are using [facility] then Physical Therapy will be provided until they feel you are ready to start Outpatient Physical Therapy. * If you are not using home therapy then Outpatient Physical Therapy should start about 3-5 days from your day of surgery. Therapy will last about 6-10 weeks * It is important not to put a pillow under your knee when you are relaxing or sleeping. It is just as important to make sure you are getting your knee perfectly straight as it is to regain your knee bend. * You were shown a series of exercises in the hospital. Do these exercises three times each day including the exercises you were shown in physical therapy. * Get up and walk several times each day. For the first four weeks, try not to stand or walk for more than one hour at a time. If you do stand or walk for more than one hour, you will not hurt anything, but your leg will likely swell. * As you feel comfortable, you may change from the walker or crutches to a cane and then to independent walking. Medications: * Narcotic You will likely be sent home from the hospital with a prescription for the narcotic pain medication that worked best throughout your stay. * Cefadroxil -take the antibiotic twice a day for 10 days to help prevent infection. * Aspirin Most patients will be required to take Aspirin 81mg twice a day for 6 weeks after surgery. This is obtained [id number] and a prescription is not necessary. * Other medications may be prescribed for specific circumstances. If you have any questions, please call the office at . * Resume previous home medications unless otherwise instructed TEDs/Elastic Stockings: The white elastic stockings help limit swelling and prevent blood clots from forming in your legs.~ The more you wear them, the more they work. Wear them for six weeks. Dressing Care: The dressing can be changed after physical therapy on postop day #1. Daily dry dressing changes for a few days, especially if the incision is still draining some. If the incision is not draining then you may leave the paulina open to air. If there is a little bit of drainage or if the paulina are getting stuck on your clothing then cover the incision with a dry dressing. The paulina will be removed at your 2 week follow-up appointment. Showering: You may shower 5 days from the day of surgery as long as the incision is no longer draining. You may shower with the paulina exposed. Let soapy water run over the paulina and pat them dry. Do not scrub or soak the incision. Things To Watch For: * Drainage from the incision site that occurs more than one week after your surgery. * Increased redness at the incision site. * Fever above 102 degrees Fahrenheit. * Unusual chest pain or shortness of breath. * Call [facility] at with any of the above problems Follow-Up Visit: Follow-up with Dr. Garrison's PA (Brennan Davila) 2-3 weeks after your day of surgery. He will remove your paulina and answer any questions. If you have any additional questions or concerns, Dr Garrison is usually in the office at the same time and will be available An appointment was probably scheduled when you signed-up for surgery in the office. If you have any questions call Office Instructions: More detailed instructions as well as Frequently Asked Questions were provided in a folder by our office when you signed-up for surgery. Please review these instructions when you get home. If you have any further questions or concerns, please feel free to call the office at [phone] Pending Studies at Discharge: No Stand-Alone Forms: My [facility] [place] [employer] Education, Smoking Cessation Medications and DC Order Prescriptions: New oxycodone 5 mg Tablet 5 mg PO Q4H PRN (Reason: pain) Qty: 30 0RF cefadroxil 500 mg capsule 500 mg PO BID 10 Days Qty: 20 0RF aspirin 81 mg Tablet,Delayed Release (Dr/Ec) 81 mg PO BID 42 Days Qty: 0 0RF Continued (DME) Vaughn Felix Misc See Rx Instructions .MEDSUPPLY Qty: 1 0RF Rx Instructions: As directed acetaminophen 325 mg capsule 325 mg PO QID PRN (Reason: Pain) amitriptyline 25 mg tablet 75 mg PO HS bupropion HCl 100 mg tablet 100 mg PO QID Rx Instructions: administer 6 hours apart calcium carbonate [Calcium 500] 500 mg calcium (1,250 mg) tablet,chewable 500 mg PO BID citalopram 20 mg tablet 20 mg PO QAM DEKAs Bariatric 22.5 mg-400 mcg -500 mcg-10 mg tablet,chewable 1 tab PO QAM loratadine [Allergy Relief (loratadine)] 10 mg tablet 10 mg PO HS omega-3 fatty acids [Fish Oil Concentrate] 1,000 mg capsule 1,000 mg PO BID fluticasone propion-salmeterol 115-21 mcg/actuation HFA aerosol inhaler 2 puff inhalation BID Lactobacillus acidophilus 1 billion cell capsule 1,000 mmu cells PO QAM lamotrigine 25 mg tablet 50 mg PO BID levothyroxine 75 mcg capsule 75 mcg PO QAM omeprazole 20 mg capsule,delayed release(DR/EC) 20 mg PO DAILY PRN (Reason: Acid Reflux) ondansetron 8 mg tablet,disintegrating 8 mg PO Q12H PRN (Reason: Nausea) oxybutynin chloride 5 mg tablet 5 mg PO TID albuterol sulfate [Proventil HFA] 90 mcg/actuation HFA aerosol inhaler 1 inh inhalation QID PRN (Reason: sob) trazodone 50 mg tablet 25 mg PO HS montelukast 10 mg Tablet 10 mg PO QAM Discharge Orders: Discharge Order (Routine); Ordered 07/19/23 Ordered By: Brennan Garrison Admission Data Admit Date/Time: 07/18/23 10:29 Attending Provider: Brennan Garrison Admit Provider: Brennan Garrison Primary Care Provider: Sugey House Other Providers: [facility],Home Healthcare
[2023-07-19] MEDS: MULTIVITAMIN TAB PO SCH (08:20)
[2023-07-19] MEDS: MONTELUKAST SODIUM 10 MG TABLET PO SCH (08:21)
[2023-07-19] MEDS: CITALOPRAM 20 MG TAB PO SCH (08:21)
[2023-07-19] MEDS: dexAMETHasone 4 MG TAB PO SCH (08:22)
[2023-07-19] MEDS: FLUTICASONE/VILANTEROL 100/25MCG 14 PUFFS/INHALER INH SCH (08:23)
== END 2023-07-19 12:49 | disposition home health service (06) ==
LOC: 3E 06:52 → ASU 06:52